=== PATIENT | female | born 1995 | race Caucasian/White ===

== ENCOUNTER 2020-10-16 22:44 | Emergency (ER) | payer OTHER, SELFPAY ==
--- NOTE | ~2020-10-16 | US_ITS ---
EXAMINATION: US OB <= 14 weeks fetus DATE: 10/17/2020 03:29 INDICATION: First trimester vaginal bleeding. TECHNIQUE: Real-time transabdominal pelvic ultrasound was performed. COMPARISON: None. FINDINGS: The uterus measures 14.1 x 7.1 x 6.2 cm. There is an intrauterine gestational sac. A yolk sac is iden tified. The crown rump length measures 1.8 cm, which correlates with an estimated gestational age of 8 weeks and 2 day(s) (+/-) 5 day(s). heart motion is identified measuring 161 beats per minute (bpm) by M-mode Doppler. There is a small subchorionic hematoma measuring 1.6 x 0.8 x 0.6 cm. The right ovary measures 3.4 x 2.0 x 2.1 cm. The left ovary measures 4.7 x 2.9 x 2.8 cm. There is a c orpus luteum cyst in left ovary measuring 2.8 cm. There is no free fluid in the pelvis. IMPRESSION: 1. Single living intrauterine gestation with estimated date of delivery 05/27/2021. 2. Small subchorionic hematoma. Reviewed, dictated and finalized at location [facility]. IMPRESSION: 1. Single living intrauterine gestation with estimated date of delivery 022. 2. Small subchorionic hematoma.
[2020-10-16 22:53] VITALS: BP 131/71; PULSE 83; RESP 20; TEMP 36.8; O2SAT 97
--- NOTE | 2020-10-16 23:12 | ED.FEMALEGU ---
HPI - Female Genitourinary General Chief complaint: Urogenital-Female Stated complaint: vag bleed Time Seen by Provider: 10/16/20 22:54 Source: patient and RN notes reviewed Mode of arrival: ambulatory Limitations: no limitations History of Present Illness HPI Narrative: This is a 25 yo female approximately 8 weeks GA who presents for evaluation of vaginal bleeding. She noticed pink discharge early today. Approximately 1 hours ago, she states her discharge turned to brownish-red. She reports mild cramping that has now resolved. She denies dizziness or lightheadedness. She reports she had an ultrasound 3 weeks ago that showed an IUP. Her OBGYN is located at [facility] in [place]. Related Data Home Medications Medication Instructions Recorded Confirmed etonogestrel [Nexplanon] 1 implant SUBDERMAL ONCE 05/05/19 05/05/19 Allergies Allergy/AdvReac Type Severity Reaction Status Date / Time Penicillins Allergy Unknown Hives Verified 05/05/19 12:51 Review of Systems Review of Systems: All systems reviewed & are unremarkable except as noted in HPI and below [facility] Past Medical History Medical History (Updated 10/17/20 @ 04:51 by Soumya Olson MD) Asthma Surgical History Surgical History (Updated 10/16/20 @ 23:15 by Soumya Olson MD) No pertinent past surgical history Social History Social History (Updated 10/16/20 @ 23:15 by Soumya Olson MD) Smoking status: Never smoker Gender identity (if verbalized by the patient): Female Exam Const: General: no acute distress and alert Orientation/consciousness: patient oriented x3 Eyes: EOM: EOMs intact bilaterally Resp: Effort & Inspection: normal respiratory effort and no retractions Auscultation: clear to auscultation bilaterally Cardio: Rate: regular rate Rhythm: regular rhythm Heart sounds: no murmurs GI: GI Palp: Yes Soft to palpation, No Tenderness to palpation present (GI) and No Guarding due to palpation present (GI) Auscultation: normal bowel sounds : Speculum Exam - Cervix: Cervical os closed Other: no bleeding Neuro: General: patient oriented x3, moves all extremities and CN's II-XI intact bilaterally Psych: Mental Status: mental status grossly normal Affect: normal affect Course Reevaluation(s) Reevaluation #1: Patient was given rhogam for her RH negative. I Discussed US with patient and she will follow up with her OBGYN Date: 10/17/20 Time: 04:47 Vital Signs Vital signs: Vital Signs Temperature 98.3 F 10/16/20 22:53 Pulse Rate 83 10/16/20 22:53 Respiratory Rate 20 10/16/20 22:53 Blood Pressure 131/71 10/16/20 22:53 Pulse Oximetry 97 10/16/20 22:53 Temperature 97.8 F 10/17/20 03:00 Pulse Rate 75 10/17/20 04:51 Respiratory Rate 18 10/17/20 04:51 Blood Pressure 140/66 10/17/20 04:51 Pulse Oximetry 100 10/17/20 04:51 MDM - Female Genitourinary Lab Data Attestation: I reviewed the patient's lab results. Result diagrams: 10/16/20 23:37 Labs: Lab Results 10/16/20 10/16/20 10/16/20 Range/Units 23:37 23:37 23:41 WBC 6.1 (4.5-10.0) K/mm3 RBC 4.56 (4.2-5.4) M/mm3 Hgb 10.6 L (12.0-15.0) g/dL Hct 34.3 L (37.0-47.0) % MCV 75.2 L (80-100) fl MCH 23.2 L (26-34) pg MCHC 30.9 L (32-36) g/dl RDW 17.9 H (11.5-14.5) % Plt Count 280 (150-375) k/mm3 MPV 10.0 (7.4-10.4) fl Immature Gran % (Auto) 0.2 (0-0.5) % Neut % (Auto) 64.6 (45.5-73.1) % Lymph % (Auto) 25.1 (18.3-44.2) % Duchesne % (Auto) 8.8 H (2.6-8.5) % Eos % (Auto) 1.0 (0-4.4) % Baso % (Auto) 0.3 (0.2-1.2) % Lymph # (Auto) 1.54 (0.9-3.2) K/mm3 Duchesne # (Auto) 0.5 (0.1-0.6) K/mm3 Eos # (Auto) 0.1 (0-0.3) K/mm3 Baso # (Auto) 0.0 (0.0-0.1) K/mm3 Abs Immat Gran (auto) 0.01 (0.00-0.031) K/mm3 Absolute Neuts (auto) 4.0 (1.3-6.7) K/mm3 Absolute Nucleated RBC 0.0 (0.0-0.012) K/mm3 Nuc
[2020-10-16 23:21] VITALS: BP 112/63; PULSE 78
[2020-10-16 23:22] VITALS: BP 116/75; PULSE 82
[2020-10-16 23:24] VITALS: BP 122/83; PULSE 82
[2020-10-16 23:47] LABS: Basophils Percent Auto 0.3 % (0.2-1.2); Eosinophils Absolute Auto 0.1 K/mm3 (0-0.3); Hematocrit 34.3 % (37.0-47.0); Hemoglobin 10.6 g/dL (12.0-15.0); Immature Granulocyte Absolute 0.01 K/mm3 (0.00-0.031); Immature Granulocyte Percent A 0.2 % (0-0.5); Lymphocytes Absolute Auto 1.54 K/mm3 (0.9-3.2); Lymphocytes Percent Auto 25.1 % (18.3-44.2); Mean Corpuscular HGB Conc 30.9 g/dl (32-36); Mean Corpuscular Hemoglobin 23.2 pg (26-34); Mean Corpuscular Volume 75.2 fl (80-100); Monocytes Absolute Auto 0.5 K/mm3 (0.1-0.6); Monocytes Percent Auto 8.8 % (2.6-8.5); Neutrophils Percent Auto 64.6 % (45.5-73.1); Platelet Count Result 280 k/mm3 (150-375); Red Blood Count 4.56 M/mm3 (4.2-5.4); Red Cell Distribution Width 17.9 % (11.5-14.5); White Blood Count 6.1 K/mm3 (4.5-10.0)
[2020-10-17 02:08] VITALS: BP 120/65; PULSE 64; RESP 18; O2SAT 97
[2020-10-17 03:00] VITALS: BP 117/71; PULSE 72; RESP 18; TEMP 36.6; O2SAT 98
[2020-10-17 04:51] VITALS: BP 140/66; PULSE 75; RESP 18; O2SAT 100
== END 2020-10-17 05:02 | disposition home or self-care (01) ==
PROVIDERS: Emergency Provider General Practice
DX: O20.0 Threatened abortion (principal); Z3A.08 8 weeks gestation of pregnancy
CPT/HCPCS: 36415; 76801; 84702; 85025; 85461; 90384; 96372; 99284; J2790

== ENCOUNTER 2021-11-24 10:43 | Emergency (ER) | payer OTHER, SELFPAY ==
[2021-11-24 11:09] VITALS: BP 111/73; PULSE 93; RESP 16; TEMP 36.3; O2SAT 100
--- NOTE | 2021-11-24 11:20 | ED.SKABFB ---
HPI - Skin/Abscess/Foreign Bdy General Chief complaint: Skin/Abscess/Foreign Body Stated complaint: cyst Time Seen by Provider: 11/24/21 11:20 Source: patient and RN notes reviewed Mode of arrival: ambulatory Limitations: no limitations History of Present Illness HPI narrative: 26-year-old female presents to the [facility] with red, inflamed area to the right inner upper thigh. Patient states its been there for approximately 3 days. Patient states he thinks it started as a pimple or ingrown hair. Denies fevers. Has full range of motion of the hips and knees. Onset (ago): day(s) (3) Related Data Allergies Allergy/AdvReac Type Severity Reaction Status Date / Time Penicillins Allergy Unknown Hives Verified 11/24/21 11:08 Review of Systems Review of Systems: All systems reviewed & are unremarkable except as noted in HPI and below Constitutional: Constitutional: Reports no additional constitutional complaints, Denies chills and Denies fever(s) Eyes: Eyes: Reports no additional eye complaints ENT: Reports system reviewed and no additional complaints, except as documented Cardiovascular: Cardiovascular: Reports no additional cardiovascular complaints Respiratory: Respiratory: Reports no additional respiratory complaints Gastrointestinal: Gastrointestinal: Reports no additional gastrointestinal complaints Musculoskeletal: Musculoskeletal: Reports no additional musculoskeletal complaints Integumentary/Breasts: Skin/Breast: Reports as per HPI and Reports erythema (Right inside thigh) Neurologic: Reports system reviewed and no additional complaints, except as documented Psychiatric: Psychiatric: Reports no additional psychiatric complaints Allergic/Immunologic: Allergic/Immunologic: Reports no additional allergic/immunologic complaints PMFSH Past Medical History Medical History Asthma Surgical History Surgical History No pertinent past surgical history Social History Social History Smoking status: Never smoker Gender identity (if verbalized by the patient): Female Comments At the time of my signature, I reviewed and agree with the nursing past medical, surgical, social, and family history. There is no relevant family history pertinent to the patient complaint. Exam Const: General: healthy appearing, no acute distress and alert Nutritional Appearance: well nourished and obese Orientation/consciousness: patient oriented x3 Limitations: no limitations HENMT: Head: normal to inspection Ears: external ears normal Eyes: General: appearance normal, both eyes and all related structures Pupils: Equal, round and reactive pupils present Neck: Neck: normal visual inspection, no lymphadenopathy and no meningeal signs Chest: Chest palpation & inspection: normal inspection of the chest Resp: Effort & Inspection: normal respiratory effort and no use of accessory muscles Auscultation: clear to auscultation bilaterally, no crackles, no rales, no rhonchi and no wheezes Cardio: Rate: regular rate Rhythm: regular rhythm Back/Spine/Pelvis: Cervical Spine: normal cervical lordosis Thoracic/Lumbar Spine: thoracic and lumbar spine normal to inspection Skin: General skin exam: normal color Rashes: no rashes Wounds: no wounds Full body images: 1. 17 x 10 cm cellulitic changes. Fluctuant area approximately 4 x 5 cm. Area raised, hot to touch. No streaking noted. Neuro: General: patient oriented x3, moves all extremities, no meningeal signs and no focal motor deficits Cranial nerves: Yes Equal, round and reactive pupils present Speech: normal speech Gait exam (Neuro): Normal gait present Extrem: General: normal to inspection, full ROM and capillary refill normal Psych: Appearance: grossly normal and well kempt Mental Status: mental status grossly
== END 2021-11-24 12:40 | disposition home or self-care (01) ==
PROVIDERS: Emergency Provider Nurse Practitioner
DX: L02.415 Cutaneous abscess of right lower limb (principal); J45.909 Unspecified asthma, uncomplicated
CPT/HCPCS: 10060; 87070; 87075; 87147; 87181; 87186; 87205; 99213; G0463

== ENCOUNTER 2024-06-09 15:32 | Emergency (ER) | payer OTHER, SELFPAY ==
[2024-06-09 15:46] VITALS: BP 133/82; PULSE 89; RESP 16; TEMP 37; O2SAT 99
--- NOTE | 2024-06-09 16:26 | ED_ITS ---
HPI - Nausea/Vomiting/Diarrhea General Chief complaint: Abdominal Pain Stated complaint: abdominal pain Time Seen by Provider: 06/09/24 15:36 Source: patient Mode of arrival: ambulatory Limitations: no limitations History of Present Illness HPI Narrative: Patient is a 28-year-old female presents with abdominal cramping, nausea and diarrhea that started this morning around 9:00 a.m.. Patient states they had [place] food last night. Denies any known exposures or sick kids at home. Denies any fever, chills, congestion, sore throat, cough. Has not taken anything for symptoms. Related Data Home Medications ?Medication ?Instructions ?Recorded ?Confirmed ?Last Taken ?Type norgestimate 0.25 mg-ethinyl 1 tablet PO DAILY 06/09/24 06/09/24 Unknown History estradiol 35 mcg tablet (Estarylla) Allergies Allergy/AdvReac Type Severity Reaction Status Date / Time Penicillins Allergy Unknown Hives Verified 06/09/24 16:32 Review of Systems Review of Systems: All systems reviewed & are unremarkable except as noted in HPI and below Constitutional: Constitutional: Denies body ache(s), Denies chills, Denies fatigue, Denies fever(s), Denies headache(s), Denies malaise and Denies weakness Eyes: Eyes: Denies blurry vision, Denies irritation and Denies loss of vision ENT: Denies otalgia, Denies headache(s), Denies nasal discharge, Denies sinus pain and Denies sore throat Cardiovascular: Cardiovascular: Denies chest pain, Denies irregular heart rhythm and Denies dyspnea Respiratory: Respiratory: Denies dyspnea Gastrointestinal: Gastrointestinal: Reports abdominal pain, Denies melena, Denies hematochezia, Reports diarrhea, Reports nausea and Denies vomiting Musculoskeletal: Musculoskeletal: Denies back pain, Denies myalgias and Denies arthralgias Integumentary/Breasts: Skin/Breast: Denies pruritus and Denies rash Neurologic: Denies headache(s), Denies loss of vision and Denies weakness Psychiatric: Psychiatric: Reports no additional psychiatric complaints Endocrine: Endocrine: Denies fatigue PMFSH Past Medical History Medical History Asthma Surgical History Surgical History No pertinent past surgical history Social History Social History Smoking status: Never smoker Gender identity (if verbalized by the patient): Female Comments At time of signature, agree with nursing past medical, surgical, social and family history. There is no relevant family history pertinent to the presenting complaint. Exam Const: General: cooperative, healthy appearing, comfortable, no acute distress and well nourished Nutritional Appearance: well nourished Orientation/consciousness: patient oriented x3 Limitations: no limitations HENMT: Head: normal to inspection, normocephalic and atraumatic Ears: hearing grossly normal bilaterally and external ears normal Face/Nose/Sinus: Normal external nose present, normal facial exam and face symmetric Face and sinus: normal facial exam and face symmetric Mouth: Yes lip normal Eyes: General: appearance normal, both eyes and all related structures Alignment and Position: alignment normal and position normal Periorbital: periorbital findings normal Eyelids: eyelids normal Pupils: Equal, round and reactive pupils present EOM: EOMs intact bilaterally Neck: Neck: normal visual inspection, full ROM and supple Chest: Chest palpation & inspection: normal inspection of the chest Resp: Effort & Inspection: normal respiratory effort and able to speak in complete sentences Auscultation: clear to auscultation bilaterally Cardio: Rate: regular rate Rhythm: regular rhythm Heart sounds: S1 normal heart sound present and S2 normal heart sound present GI: Inspection: normal to inspection GI Palp: Yes abdominal tenderness (Left upper quadrant), Yes Soft to palpation and No Guarding due to palpation present (GI) Auscultation: normal bowel sounds Rectal Exam: deferred Skin: General skin exam: normal color and no rashes or lesions noted Neuro: General: patient oriented x3 and moves all extremities Cranial nerves: Yes Equal, round and reactive pupils present Speech: normal speech Gait exam (Neuro): Normal gait present Extrem: General: normal to inspection, full ROM and no edema Psych: Appearance: grossly normal and well kempt Mental Status: mental status grossly normal Speech and movement: Normal speech and movement present Affect: normal affect Attitude: cooperative Thought process: Normal thought process present Course Course Emergency Course: Patient is aware of diagnosis, understands and agrees to treatment plan. Anticipatory guidance given. Patient agrees to follow-up as directed and is aware of reasons to seek care at the emergency department. Portions of this record may have been created with voice recognition software Level of Care: Express Care Visit Vital Signs Vital signs: Vital Signs Temperature 37.0 C 06/09/24 15:46 Pulse Rate 89 06/09/24 15:46 Respiratory Rate 16 06/09/24 15:46 Blood Pressure 133/82 06/09/24 15:46 Pulse Oximetry 99 06/09/24 15:46 Temperature 37.0 C 06/09/24 15:46 Pulse Rate 89 06/09/24 15:46 Respiratory Rate 16 06/09/24 15:46 Blood Pressure 133/82 06/09/24 15:46 Pulse Oximetry 99 06/09/24 15:46 Reviewed MDM - Nausea/Vomiting/Diarrhea MDM Narrative Medical decision making narrative: Pt well hydrated appearing, in no respiratory distress, hemodynamically stable. Recommend supportive care. The patient is stable at time of discharge the clinical impression was discussed and the patient was given the opportunity to ask questions, which were addressed as completely as possible given the information available at present. Anticipatory guidance and return to care precautions were discussed and the importance of primary care follow-up was stressed and encouraged. The patient voiced understanding of the plan, indications to return, and the need for follow-up. Exam findings show no acute concerns or changes Patient is appropriate for outpatient treatment and follow-up. Differential Diagnosis Differential diagnosis: Likely traveler's diarrhea, food poisoning, gastroenteritis and clostridium difficile infection Medical Records Attestation: I reviewed the patient's medical records. Lab Data Labs: Lab Results 06/09/24 Range/Units 16:44 POC Influenza A Ag Negative (Negative) POC Influenza B Ag Negative (Negative) POC SARS CoV-2 Ag Negative (Negative) Discharge Plan Discharge Clinical Impression: Gastroenteritis Patient Disposition: Home, Self-Care Condition: Stable Instructions: Gastroenteritis (ED) Additional Instructions: Fever negative for COVID and flu Take Bentyl as prescribed. Use Zofran as needed for nausea. If diarrhea persists more than 3 days you may start [id number] Imodium. Stay hydrated. Take small sips of fluid containing electrolytes frequently(Body Dittmer, Gatorade, Powerade, liquid IV). Eat small meals that her very bland including bananas, applesauce, rice, toast, boiled or grilled chicken, soup. Do not eat anything fried, spicy or overly acidic. You should go to the hospital if you experience return of persistent nausea and vomiting that does not resolve and does not allow you to tolerate any food or fluids, persistent fevers for greater than 2-3 more days, increasing abdominal pain that persists despite medications, persistent diarrhea, dizziness, syncope (fainting), or for any other concerns. Patient Language: [place] Prescriptions: New dicyclomine 20 mg tablet 20 mg PO QID 7 Days Qty: 28 0RF ondansetron 4 mg tablet,disintegrating 4 mg PO Q6-8H PRN (Reason: nausea and vomiting) Qty: 7 0RF No Action norgestimate-ethinyl estradiol [Estarylla] 0.25-35 mg-mcg tablet 1 tablet PO DAILY Follow-up/Referrals: PHYSICIAN NOT ON STAFF,NONSTAFF [Primary Care Provider] - Ilya Collier MD [Physician] - 3 Days (Establish care) Stand Alone Forms: Work/School Release IP Time of Disposition: 16:47
[2024-06-09 16:46] LABS: EDCOVIDSCREEN Negative (Negative); EDINFLUASCREEN Negative (Negative); EDINFLUBSCREEN Negative (Negative)
== END 2024-06-09 16:59 | disposition home or self-care (01) ==
PROVIDERS: Emergency Provider Nurse Practitioner Family
DX: K52.9 Noninfective gastroenteritis and colitis, unspecified (principal); J45.909 Unspecified asthma, uncomplicated; Z20.822 Contact with and (suspected) exposure to COVID-19
CPT/HCPCS: 87426; 87804; 99213; G0463

== ENCOUNTER 2024-06-10 01:56 | Emergency (ER) | payer OTHER, SELFPAY ==
--- OUTSIDE RECORDS SUMMARY | 2024-06-10 02:00 | XMS_ITS | Data Portability ---
Author Organization [facility] [employer], Main Office Address [address] [place] [address] Assessment No assessment recorded. Plan of Treatment Reminders Order Date Submit Date Provider Last Modified By Organization Details Last Modified Time Details Appointments None recorded. Lab lipid panel, serum [address] (Lab), [address] [place], [address], 3 12:39:10 CBC w/ auto diff [address] (Lab), [address] [place], [address], 3 12:39:11 TSH, serum or plasma [address] (Lab), [address] [place], [address], 3 12:39:11 T4, free, serum [address] (Lab), [address] [place], [address], 3 12:39:11 CK (creatine kinase), total, serum [address] (Lab), [address] [place], [address], 3 12:39:11 ferritin, serum or plasma [address] (Lab), [address] [place], [address], 3 12:39:11 iron + total iron-bindin g capacity (TIBC), serum [address] (Lab), [address] [place], [address], 3 12:39:11 vitamin B12 + folate, serum or blood [address] (Lab), [address] [place], [address], 3 12:39:11 vitamin D, 25-hydroxy, total, serum [address] (Lab), [address] [place], [address], 3 12:39:12 hemoglobin A1C, fingerstick 2022 023 [facility] [address], [place], [address], 11:01:26 Referral None recorded. Procedures None recorded. Surgeries None recorded. Imaging None recorded. Medication Orders albuterol sulfate HFA 90 mcg/actuati on aerosol inhaler 2022 023 patrice Schneider [facility] #[id number], [address], [place], [place], [id number], 3 12:36:02 ferrous sulfate 325 mg (65 mg iron) tablet 2022 023 [facility], [address] [place], [place], [id number], 3 10:16:05 omeprazole 20 mg capsule,del ayed release 2022 023 [facility] #[facility]91, [address] [place], [place], [id number], 3 12:03:01 hydroxyzine HCl 10 mg tablet 2022 023 [facility] [place] [facility] #13024, [address] [place], [place], [id number], 3 12:08:03 Patient TargetsNo targets recorded. Patient Instructions Encounter Date Encounter Id Patient Instructions Last Modified By Organization Details Last Modified Time 11/19/2022 [id number] she will get lab s done [email or web address] Not available 11/21/2022 10:08:24 Reason for Referral None Reported. Results Created Date Observation Date Name Description Value Unit Range Abnormal Flag Note LastModifiedBy Organization Detail LastModifiedTime 10/21/1910/20/2022 hemog lobin A1C, finge rstic k HgbA1C 5.4 Not Available [facility] [address], [place], [address], 10/20/2022 10:15:15 Result Notes None recorded. Problems Name Problem SNOMED Code Status Onset Date Resolution Date Notes Provider Name and Address Organization Details Recorded Time Iron deficiency anemia 44122957 Active 2022 MAIDA Leach [address], [place], [address], [employer] 3 10:13:51 Family history of diabetes mellitus 740478205 Active 2022 maternal MAIDA Leach [address], [place], [address], [employer] 3 10:14:57 At increased risk of nutritional deficit 798875339 Active 2022 MAIDA Leach [address], [place], [address], [employer] 3 10:17:36 Adult health examination Active 2022 MAIDA Leach [address], [place], [address], [employer] 3 10:17:59 Asthma 811699940 Active 2022 MAIDA Leach [address], [address], [place], [address], [employer] 3 10:19:31 Gastroesoph ageal reflux disease 849566513 Active 2022 MAIDA Leach [address], [address], [place], [address], [employer] 3 12:01:49 Anxiety 00887239 Active 2022 MAIDA Leach [address], [address], [place], [address], [employer] 3 12:05:38 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 Medical Equipment None Reported. Allergies Allergen ID Allergen Name Allergen Category Reaction Reaction Severity Criticality Documentation Date Start Date Code Code System Note Provider Name and Address Organization Details Recorded Time 44679 Product containin g penicilli n and antibioti c (product) medicatio n Not available Not available Not available 10/20/2022 [id number] SNPASHA Armendariz, [place] [employer] [facility] [employer] [facility] 3 09:43:18 Medications Name Sig Start Date Stop Date Status Note LastModified by Organization Details LastModified Time clindamycin HCl 300 mg capsule TAKE 1 CAPSULE BY MOUTH EVERY 8 HOURS FOR 10 DAYS 10/20 completed Not Available Not Available Not Available hydrocodone 5 mg-acetamin ophen 325 mg tablet TAKE 1 TABLET BY MOUTH EVERY 6 HOURS NEEDED FOR PAIN 10/20 completed Not Available Not Available Not Available omeprazole 20 mg capsule,del ayed release TAKE 1 CAPSULE BY MOUTH TWICE DAILY BEFORE MEALS FOR 30 DAYS. active Not Available Not Available No t Available cyanocobala min (vit B-12) 1,[address] 1 tablet twice a day by sublingua l route for 30 days. 2022 active Not Available Not Available Not Avai lable albuterol sulfate HFA 90 mcg/actuati on aerosol inhaler INHALE 2 PUFFS BY MOUTH THREE TIMES DAILY NEEDED active Not Available Not Available No t Available hydroxyzine HCl 10 mg tablet TAKE 1 TO 2 TABLETS BY MOUTH UP TO THREE TIMES DAILY NEEDED active Not Available Not Available No t Available cholecalcif nicolle (vitamin D3) 25 mcg (1,000 unit) capsule Take 1 capsule every day by oral route with meals for 30 days. 2022 active Not Available Not Available Not Avai lable FeroSul 325 mg (65 mg iron) tablet TAKE 1 TABLET BY MOUTH TWICE DAILY FOR 30 DAYS active Not Available Not Available No t Available [employer] 3 mg-14.2 mg (28) tablet active Not Available Not Available Not Available Vitals Date Recorded Body height Body mass index (BMI) Body weight Body temperature Heart rate Oxygen saturation Oxygen saturation in Arterial blood by Pulse oximetry Systolic blood pressure Diastolic blood pressure Provider Name and Address Organization Details Last Updated DateTime 3 165.1 cm 35.5 kg/m2 99306.5 7 g 98.2 [degF] 92 /min 97 % 97 % 110 mm[Hg] 82 mm[Hg] PASHA Christianson - [place] [employer] 3 09:42:50 Date Recorded Body height Body mass index (BMI) Body weight Body temperature Heart rate Oxygen saturation Oxygen saturation in Arterial blood by Pulse oximetry Systolic blood pressure Diastolic blood pressure Provider Name and Address Organization Details Last Updated DateTime 3 165.1 cm 35.1 kg/m2 83793.9 9 g 97.8 [degF] 90 /min 98 % 98 % 110 mm[Hg] 80 mm[Hg] Liz Rodrigues MA [email or web address] 11:57:02 Social History Question Answer Notes LastModified by Organizat ion Details LastModified Time Tobacco Smoking Status Never Smoker Liz Rodrigues MA null, [email or web address] 10/20/2022 09:47:06 What Is Your Level Of Alcohol Consumption? Occasional [email or web address] Information not available 10/20/2022 What Is Your Level Of Caffeine Consumption? Heavy [email or web address] Information not available 10/20/2022 Do You Use Your Seat Belt Or Car Seat Routinely? Yes [email or web address] Information not available 10/20/2022 Do You Participate In Social Media? Yes [email or web address] Information not available 10/20/2022 Do You Feel Stressed (tense, Restless, Nervous, Or Anxious, Or Unable To Sleep At Night)? [id number] [email or web address] Information not available 10/20/2022 Do You Use Any Illicit Or Recreational Drugs? No [email or web address] Information not available 10/20/2022 Sex: Unknown Functional Status None recorded. Mental Status None recorded. Family History Relationship Description Onset Age of this Age Resolved Age Notes LastModified by Organization Details LastModified Time Mother Asthma [email or web address] Not availabl e 10/20/2022 09:44:56 Mother Diabetes mellitus [email or web address] Not available 10/09 09:45:12 Sister Asthma [email or web address] Not availabl e 10/20/2022 09:44:57 Sister Diabetes mellitus [email or web address] Not available 10/09 09:45:17 Maternal Grandfather Asthma [email or web address] Not available 09:44:57 Maternal Grandfather Diabetes mellitus [email or web address] Not available 10/09 09:45:22 Maternal Aunt Diabetes mellitus [email or web address] Not available 10/09 09:45:29 Medical History No medical history recorded. Gynecological HistoryNo gynecological history recorded. Obstetrics History GPAL:G 0 P 0 0 0 0 Past Encounters Encounter ID Performer Location Encounter Start Date Encounter Closed Date Diagnosis/Indication Diagnosis SNOMED-CT Code Diagnosis ICD10 Code Diagnosis Note [id number] MAIDA Leach [facility] Juanis woodse [address] [facility] [address] [place] [address] 10/20/2022 09:24:35 10/20/2022 10:36:07 Iron deficiency anemia 18160672 D50.9 Family his tory of diabetes mellitus 318811012 Z83.3 Adult heal th examination 695200548 Z00.00 Asthma 732583726 J45.90 9 [id number] MAIDA Leach [facility] Jaylenmerced lle [address] [facility] [place] [address] 11/19/2022 11:49:03 11/19/2022 12:50:16 Gastroesophageal reflux disease 549606365 K21.9 Asthma 893411620 J45.90 9 Anxiety 90286132 F41.9 Health Concerns Section Related Observation LastModified by Organization Detai ls LastModified Time None Recorded Concern Status LastModified by Organization Details LastModified Time None Recorded Advance Directives Directive None Recorded Payers Encounter Date Sequence Insurance Name Policy Number Policy Coleman Covered Member ID Coleman Member ID Guarantor Name 10/20/2022 1 [facility] (MEDICARE REPLACEMENT/ ADVANTAGE - HMO) Nimo Silverman [id number] Nimo Silverman 11/19/2022 1 [facility] (MEDICARE REPLACEMENT/ ADVANTAGE - HMO) Nimo Silverman [id number] Nimo Silverman Notes Date Note Type Note Provider Name and Address Organization Details Recorded Time 10/20/2022 text/html 27 y/o with low iron , has had iron infusions (last one about a year ago) and blood transfusions (last one about 4 years ago ) . family history of diabetes , maternal side . not hungry all the time , not thirsty all the time , not urinating all the time . asthma , no attacks in the last 2 years. MAIDA Leach [address], [place], [address], [facility] [employer] 10/21/2022 12:37:18 11/19/2022 text/html needs refills on meds MAIDA Leach [address], [place], [address], [facility] 11/21/2022 10:08:43 OBGyn Episode No OBEpisode recorded.
--- OUTSIDE RECORDS SUMMARY | 2024-06-10 02:01 | XMS_ITS | Data Portability ---
Author Organization [facility] [employer] , [facility] Address [address] [place] [address] Care Team Providers Care Animal Control Supervisor Name Role Phone [facility] Transverse Abdominal Muscle Nurse Assessment No assessment recorded. Plan of Treatment Reminders Order Date Submit Date Provider Last Modified By Organization Details Last Modified Time Details Appointments None recorded. Lab test, urine 2023 025 [email or web address] [facility], [address] [place], [address], 5 11:23:54 Referral None recorded. Procedures None recorded. Surgeries None recorded. Imaging US, transvagina l 2023 025 GAVINO Not available 5 01:41:05 Medication Orders [employer] 3 mg-14.2 mg (28) tablet 2023 025 [facility] #[id number], [address], [place], [id number], 5 11:01:31 28 mg iron-800 mcg tablet 2024 025 [employer] #[id number], [address], [place], [id number], 5 11:23:57 Patient TargetsNo targets recorded. Patient Instructions Encounter Date Encounter Id Patient Instructions Last Modified By Organization Details Last Modified Time 07/17/2021 [id number] Will proceed wit h laparoscopic bilateral salpingectomy, risks of surgery are infection, bleeding, scarring, injury to bowel, bladder, uterus [id number] Not available 07/17/2021 22:36:46 Reason for Referral None Reported. Results Created Date Observation Date Name Description Value Unit Range Abnormal Flag Note LastModifiedBy Organization Detail LastModifiedTime 04/26/20 21 05/01/2021 CULTU RE, GROUP B STREP WITH SUSCE PTIBI LITY culture, group B strep with susceptibili ty SEE NOTE abnormal CULTU RE, GROUP B STREP WITH SUSCE PTIBI LITY Micro Numbe r: [id number] Test Statu s: Final Speci men Sourc e: Vagin al/an orect al Speci men Quali ty: Adequ ate Resul t: Group B Strep tococ cus isola yamileth Note per CDC guide lines optim al recov willem is achie mp by swabb ing both the lower vagin a and rectu m (thro ugh the anal sphin cter) . Group B Strep ----- ----- ----- - INT MERA AMPIC ILLIN S <=0.2 5 CLIND AMYCI N S <=0.2 5 PENIC ILLIN S <=0.0 6 VANCO MYCIN S 0.5 S=Sun cepti ble I=Int ermed iate R=Res istan t * = Not Teste d NR = Not Repor yamileth NN = See Thera py Comme nts Not Available [place] [address] [place], [address], 05/01/2021 08:47:57 05/17/19 22 05/17/2021 UA REFLE X TO MICRO specimen type URINE CLEAN CATCH Not Available [facility] [address] [place], [address], 05/17/2021 02:41:01 05/17/19 22 05/17/2021 UA REFLE X TO MICRO color COLORL ESS Not Available [facility] [place], [address], 05/17/2021 02:41:01 05/17/19 22 05/17/2021 UA REFLE X TO MICRO clarity CLEAR Not Available [facility] (Lab) [address] [place]? [address] [facility], [place], [address], 05/17/2021 02:41:01 05/17/19 22 05/17/2021 UA REFLE X TO MICRO specific gravity 1.004 1.001- 1.030 Not Available [facility] (Lab) [address], [place], [address], 05/17/2021 02:41:01 05/17/19 22 05/17/2021 UA REFLE X TO MICRO pH, urine 6.0 5.0-9. 0 Not Available [facility] (Lab) [address] [place], [place], [address], 05/17/2021 02:41:01 05/17/19 22 05/17/2021 UA REFLE X TO MICRO leukocytes NEGATI VE neg Not Available [facility] (Lab) [place], [address], 05/17/2021 02:41:01 05/17/19 22 05/17/2021 UA REFLE X TO MICRO nitrite NEGATI VE neg Not Available [facility] (Lab) [place], [address], 05/17/2021 02:41:01 05/17/19 22 05/17/2021 UA REFLE X TO MICRO protein NEGATI VE mg/dL <30 Not Available [facility] (Lab) [address] [place], [place], [address], 05/17/2021 02:41:01 05/17/19 22 05/17/2021 UA REFLE X TO MICRO glucose NORMAL mg/dL norm Not Available [facility] (Lab) [address], [address], 05/17/2021 02:41:01 05/17/19 22 05/17/2021 UA REFLE X TO MICRO ketone NEGATI VE mg/dL neg Not Available [facility] (Lab) [address] [place]? [address] [facility], [place], [address], 05/17/2021 02:41:01 05/17/19 22 05/17/2021 UA REFLE X TO MICRO urobilinogen NORMAL mg/dL norm Not Available [facility] (Lab) [address] [place], [address], 05/17/2021 02:41:01 05/17/19 22 05/17/2021 UA REFLE X TO MICRO bilirubin NEGATI VE mg/dL neg Not Available [facility] (Lab) [address] [place], [address], 05/17/2021 02:41:01 05/17/19 22 05/17/2021 UA REFLE X TO MICRO blood NEGATI VE neg Not Available [facility] (Lab) [place], [address], 05/17/2021 02:41:01 05/17/19 22 05/17/2021 DRUGS OF ABUSE PANEL , URINE amphetamines , urine NEGATI VE neg Not Available [facility] (Lab) [address] [place], [address], 05/17/2021 02:48:11 05/17/19 22 05/17/2021 DRUGS OF ABUSE PANEL , URINE barbituates, urine NEGATI VE neg Not Available [facility] (Lab) [address] [place]? [facility], [place], [address], 05/17/2021 02:48:11 05/17/19 22 05/17/2021 DRUGS OF ABUSE PANEL , URINE benzodiazapi arabella, urine NEGATI VE neg Not Available [facility] (Lab) [address] [place]? [facility], [place], [address], 05/17/2021 02:48:11 05/17/19 22 05/17/2021 DRUGS OF ABUSE PANEL , URINE cannabinoids /THC, urine NEGATI VE neg Not Available [facility] (Lab) [address] [place]? [facility], [place], [address], 05/17/2021 02:48:11 05/17/19 22 05/17/2021 DRUGS OF ABUSE PANEL , URINE cocaine, urine NEGATI VE neg Not Available [facility] (Lab) [address] [place]? [facility], [place], [address], 05/17/2021 02:48:11 05/17/19 22 05/17/2021 DRUGS OF ABUSE PANEL , URINE methadone, urine NEGATI VE neg Not Available [facility] (Lab) [address] [place]? [facility], [place], [address], 05/17/2021 02:48:11 05/17/19 22 05/17/2021 DRUGS OF ABUSE PANEL , URINE opiates, urine NEGATI VE neg Not Available [facility] (Lab) [address] [place]? [facility], [place], [address], 05/17/2021 02:48:11 05/17/19 22 05/17/2021 DRUGS OF ABUSE PANEL , URINE phencyclidin es, urine NEGATI VE neg NOTE: RESUL TS OF THIS DRUG SCREE N SHOUL D BE USED FOR MEDIC AL PURPO SES ONLY AND NOT FOR LEGAL OR EMPLO YMENT PURPO SES. POSIT SHELDON RESUL TS ARE NOT CONFI RMED. MEDIC ATION S CONTA INING EPHED RINE MAY CAUSE FALSE POSIT SHELDON AMPHE TAMIN E CALL [phone], LAB, TO REQUE ST CONFI RMATI ON TESTI NG. IF CREAT ININE IS <40 mg/dL . RECOL LECTI ON IS SUGGE STED. AMPHE TAMIN E- 500 NG/ML LUCI TURAT E- 200 NG/ML BENZO DIAZE PINES - 200 NG/ML THC- 50 NG/ML COCAI NE- 150 NG/ML METHA DONE- 300 NG/ML OPIAT E- 300 MG/ML PCP- 25 NG/ML Not Available [facility] (Lab) One [facility], [place], [address], 05/17/2021 02:48:11 05/17/19 22 05/17/2021 DRUGS OF ABUSE PANEL , URINE creatinine, urine 16.8 mg/dL 28-217 low Not Available [facility] (Lab) [place], [address], 05/17/2021 02:48:11 05/17/19 22 05/17/2021 TYPE AND SCREE N ABO/Rh(D) O NEGATI VE Not Available [facility] (Lab) [place], [address], 05/20/2021 07:19:01 05/17/19 22 05/17/2021 TYPE AND SCREE N antibody screen NEGATI VE Not Available [facility] (Lab) [place], [address], 05/20/2021 07:19:01 05/17/19 22 05/17/2021 TYPE AND SCREE N xm expiration 2021,2 359 Not Available [facility] (Lab) [address] [place], [address], 05/20/2021 07:19:01 05/17/19 22 05/17/2021 TYPE AND SCREE N allocated unit Not Available [facility] (Lab) [address], [place], [address], 05/20/2021 07:19:01 05/17/19 22 05/17/2021 TYPE AND SCREE N unit number [id number] 1 Not Available [facility] (Lab) [address], [place], [address], 05/20/2021 07:19:01 05/17/19 22 05/17/2021 TYPE AND SCREE N blood component type PC LEUKOP OOR Not Available [facility] (Lab) [address], [place], [address], 05/20/2021 07:19:01 05/17/19 22 05/17/2021 TYPE AND SCREE N unit division 00 Not Available [facility] (Lab) [address], [place], [address], 05/20/2021 07:19:01 05/17/19 22 05/17/2021 TYPE AND SCREE N transfusion status OK TO TRANSF USE Not Available [facility] (Lab) [address] [place], [place], [address], 05/20/2021 07:19:01 05/17/19 22 05/17/2021 TYPE AND SCREE N crossmatch result COMPAT IBLE-E XM Not Available [facility] (Lab) [address] [place], [place], [address], 05/20/2021 07:19:01 01/07/20 22 05/18/2021 TYPE AND SCREE N units ordered 3 Not Available [facility] (Lab) [address] [place]? [address], [place], [address], 05/20/2021 07:19:01 05/17/19 22 05/18/2021 TYPE AND SCREE N status of unit TRANSF USED,F INAL [id number] 22 0738 Not Available [facility] (Lab) [address] [place]? [address], [place], [address], 05/20/2021 07:19:01 05/17/19 22 05/18/2021 TYPE AND SCREE N allocated unit Not Available [facility] (Lab) [address] [place], [place], [address], 05/20/2021 07:19:01 05/17/19 22 05/18/2021 TYPE AND SCREE N unit number [id number] 2 Not Available [facility] (Lab) [address] [place]? [address], [place], [address], 05/20/2021 07:19:01 05/17/19 22 05/18/2021 TYPE AND SCREE N blood component type PC LEUKO PHERE BAG2 Not Available [facility] (Lab) [address] [place]? [address], [place], [address], 05/20/2021 07:19:01 05/17/19 22 05/18/2021 TYPE AND SCREE N unit division 00 Not Available [facility] (Lab) [address] [place], [place], [address], 05/20/2021 07:19:01 05/17/19 22 05/18/2021 TYPE AND SCREE N transfusion status OK TO TRANSF USE Not Available [facility] (Lab) [address], [place], [address], 05/20/2021 07:19:01 05/17/19 22 05/18/2021 TYPE AND SCREE N crossmatch result COMPAT IBLE-E XM Not Available [facility] (Lab) [address], [place], [address], 05/20/2021 07:19:01 05/17/19 22 05/18/2021 TYPE AND SCREE N allocated unit Not Available [facility] (Lab) [address], [place], [address], 05/20/2021 07:19:01 05/17/19 22 05/18/2021 TYPE AND SCREE N unit number [id number] 4 Not Available [facility] (Lab) [address], [place], [address], 05/20/2021 07:19:01 05/17/19 22 05/18/2021 TYPE AND SCREE N blood component type PC LEUKO PHERE BAG2 Not Available [facility] (Lab) [place], [address], 05/20/2021 07:19:01 05/17/19 22 05/18/2021 TYPE AND SCREE N unit division 00 Not Available [facility] (Lab) [address] [place], [address], 05/20/2021 07:19:01 05/17/19 22 05/18/2021 TYPE AND SCREE N transfusion status OK TO TRANSF USE Not Available [facility] (Lab) [address] [place], [address], 05/20/2021 07:19:01 05/17/19 22 05/18/2021 TYPE AND SCREE N crossmatch result COMPAT IBLE-E XM Not Available [facility] (Lab) [address] [place], [place], [address], 05/20/2021 07:19:01 05/17/19 22 05/19/2021 TYPE AND SCREE N status of unit TRANSF USED,F INAL [id number] 22 1213 Not Available [facility] (Lab) [address] [place], [place], [address], 05/20/2021 07:19:01 05/17/19 22 05/20/2021 TYPE AND SCREE N status of unit TRANSF USED,F INAL [id number] 22 0618 Not Available [facility] (Lab) [address] [place] [place], [address], 05/20/2021 07:19:01 05/17/19 22 05/17/2021 CBC WITH DIFF WBC 5.8 x10'3 /uL 4.5-11 .0 Not Available [facility] (Lab) [address] [place], [place], [address], 05/17/2021 03:29:46 05/17/19 22 05/17/2021 CBC WITH DIFF RBC 3.64 x10'6 /uL 4.20-5 .40 low Not Available [facility] (Lab) [address] [place], [address], 05/17/2021 03:29:46 05/17/19 22 05/17/2021 CBC WITH DIFF hemoglobin 7.5 g/dL 12.0-1 6.0 low Not Available [facility] (Lab) [address] [place], [place], [address], 05/17/2021 03:29:46 05/17/19 22 05/17/2021 CBC WITH DIFF hematocrit 26.3 % 38.0-4 8.0 low Not Available [facility] (Lab) [address] [place], [place], [address], 05/17/2021 03:29:46 05/17/19 22 05/17/2021 CBC WITH DIFF MCV 72.3 fL 81.0-9 9.0 low Not Available [facility] (Lab) [address] [place], [place], [address], 05/17/2021 03:29:46 05/17/19 22 05/17/2021 CBC WITH DIFF MCH 20.6 pg 27.0-3 1.0 low Not Available [facility] (Lab) [address] [place], [place], [address], 05/17/2021 03:29:46 05/17/19 22 05/17/2021 CBC WITH DIFF MCHC 28.5 g/dL 32.0-3 6.0 low Not Available [facility] (Lab) [address] [place], [place], [address], 05/17/2021 03:29:46 05/17/19 22 05/17/2021 CBC WITH DIFF RDW 19.6 % 11.5-1 4.5 high Not Available [facility] (Lab) [address] [place], [place], [address], 05/17/2021 03:29:46 05/17/19 22 05/17/2021 CBC WITH DIFF platelet count 233 x10'3 /uL 130-40 0 Not Available [facility] (Lab) [address] [place], [place], [address], 05/17/2021 03:29:46 05/17/19 22 05/17/2021 CBC WITH DIFF MPV 10.4 fL 9.3-12 .2 Not Available [facility] (Lab) [address] [place], [place], [address], 05/17/2021 03:29:46 05/17/19 22 05/17/2021 CBC WITH DIFF diff type AUTOMA YAMILETH DIFFER ENTIAL Not Available [facility] (Lab) [address] [place], [place], [address], 05/17/2021 03:29:46 05/17/19 22 05/17/2021 CBC WITH DIFF neutrophils 66.5 % Not Available [facility] (Lab) [address] [place], [place], [address], 05/17/2021 03:29:46 05/17/19 22 05/17/2021 CBC WITH DIFF lymphocytes 20.3 % Not Available [facility] (Lab) [address] [place], [place], [address], 05/17/2021 03:29:46 05/17/19 22 05/17/2021 CBC WITH DIFF monocytes 11.5 % Not Available [facility] (Lab) [address] [place], [place], [address], 05/17/2021 03:29:46 05/17/19 22 05/17/2021 CBC WITH DIFF eosinophils 1.2 % Not Available [facility] (Lab) [address] [place], [place], [address], 05/17/2021 03:29:46 05/17/19 22 05/17/2021 CBC WITH DIFF basophils 0.2 % Not Available [facility] (Lab) [address] [facility], [place], [address], 05/17/2021 03:29:46 05/17/19 22 05/17/2021 CBC WITH DIFF immature granulocytes 0.3 % Not Available [facility] (Lab) [address] [facility], [place], [address], 05/17/2021 03:29:46 05/17/19 22 05/17/2021 CBC WITH DIFF abs. neutrophils 3.87 x10'3 /uL 1.80-7 .70 Not Available [facility] (Lab) [address], [place], [address], 05/17/2021 03:29:46 05/17/19 22 05/17/2021 CBC WITH DIFF abs. lymphocytes 1.18 x10'3 /uL 1.00-4 .80 Not Available [facility] (Lab) [address] [facility], [place], [address], 05/17/2021 03:29:46 05/17/19 22 05/17/2021 CBC WITH DIFF abs. monocytes 0.67 x10'3 /uL 0.24-0 .86 Not Available [facility] (Lab) [address] [facility], [place], [address], 05/17/2021 03:29:46 05/17/19 22 05/17/2021 CBC WITH DIFF abs. eosinophils 0.07 x10'3 /uL 0.04-0 .36 Not Available [facility] (Lab) One [facility] [facility], [place], [address], 05/17/2021 03:29:46 05/17/19 22 05/17/2021 CBC WITH DIFF abs. basophils 0.01 x10'3 /uL 0.01-0 .08 Not Available [facility] (Lab) [address] [place] [place], [address], 05/17/2021 03:29:46 05/17/19 22 05/17/2021 CBC WITH DIFF abs. immature grans 0.02 x10'3 /uL 0.00-0 .49 Not Available [facility] (Lab) [address] [place] [place], [address], 05/17/2021 03:29:46 05/17/19 22 05/17/2021 CBC WITH DIFF RBC morphology SLIDE REVIEW ED Not Available [facility] (Lab) [address] [place] [place], [address], 05/17/2021 03:29:46 05/17/19 22 05/17/2021 CBC WITH DIFF anisocytosis 1+ Not Available [facility] (Lab) [address] [place] [place], [address], 05/17/2021 03:29:46 05/17/19 22 05/17/2021 CBC WITH DIFF microcytosis 1+ Not Available [facility] (Lab) [address] [place] [place], [address], 05/17/2021 03:29:46 05/17/19 22 05/17/2021 CBC WITH DIFF polychromasi a 1+ Not Available [facility] (Lab) [address] [place], [place], [address], 05/17/2021 03:29:46 05/17/19 22 05/17/2021 CBC WITH DIFF platelet estimate ADEQUA TE Not Available [facility] (Lab) [address] [place] [place], [address], 05/17/2021 03:29:46 05/17/19 22 05/17/2021 CBC WITH DIFF pathologist review PATHOL OGIST REVIEW TO FOLLOW . Not Available [facility] (Lab) [address] [place]? [address] [facility], [place], [address], 05/17/2021 03:29:46 05/17/19 22 05/17/2021 PATHO LOGIS T COMME NT pathologist comment PATHOL OGIST REVIEW ADDED TO REPORT [id number] 022 MARKE D MICRO CYTIC ANEMI A. POSSI BLE ETIOL OGIES INCLU DE THALA SSEMI A, IRON DEFIC IENCY , AND ANEMI A OF CHRON IC DISEA SE. IRON STUDI ES AND HEMOG LOBIN ELECT ROPHE RESIS MAY BE HELPF UL. POLYC HROMA DAYLIN OF RBC'S SUGGE ST RETIC ULOCY TOSIS , OFTEN ASSOC IATED WITH A RED CELL SURVI ÁNGEL DEFEC T, COMPE NSATE D OR UNCOM PENSA YAMILETH. ABNOR MAL LYMPH OID CELLS . GIANT PLATE LETS PRESE NT. REVIE WED BY MOIRA Santana M.D., PATHO LOGIS T Not Available [facility] (Lab) One [facility] [address] [facility], [place], [address], 05/17/2021 18:15:42 05/17/19 22 05/17/2021 CORON AVIRU S (COVI D 19) ANTIG EN coronavirus antigen ia POSITI VE neg abnormal THIS TEST HAS BEEN AUTHO RIZED BY THE FDA UNDER AN EMERG ENCY USE AUTHO RIZAT ION (EUA) FOR USE BY AUTHO RIZED LABOR ATORI ES. Succe ssful Call: [id number] G box d 05/17 06:22 PM to JAY GILBERT MD [phone]/B [place] [id number] 3. Read Back: Yes Not Available [facility] (Lab) [address] [place]? [address] [facility], [place], [address], 05/17/2021 19:22:54 05/17/19 22 05/17/2021 CORON AVIRU S (COVI D 19) ANTIG EN specimen type NASAL Not Available [facility] (Lab) [address] [place] [place], [address], 05/17/2021 19:22:54 05/17/19 22 05/17/2021 CORON AVIRU S (COVI D 19) ANTIG EN first test? NO Not Available [facility] (Lab) [address] [place] [place], [address], 05/17/2021 19:22:54 05/17/19 22 05/17/2021 CORON AVIRU S (COVI D 19) ANTIG EN employed in healthcare? NO Not Available [facility] (Lab) [address] [place] [place], [address], 05/17/2021 19:22:54 05/17/19 22 05/17/2021 CORON AVIRU S (COVI D 19) ANTIG EN symp defined by cdc? YES Not Available [facility] (Lab) [address] [place] [place], [address], 05/17/2021 19:22:54 05/17/19 22 05/17/2021 CORON AVIRU S (COVI D 19) ANTIG EN date of symptom onset Not Available [facility] (Lab) [address] [place] [place], [address], 05/17/2021 19:22:54 05/17/19 22 05/17/2021 CORON AVIRU S (COVI D 19) ANTIG EN hospitalized ? YES Not Available [facility] (Lab) [place], [address], 05/17/2021 19:22:54 05/17/19 22 05/17/2021 CORON AVIRU S (COVI D 19) ANTIG EN ICU? NO Not Available [facility] (Lab) [address] [place]? [address] [facility], [place], [address], 05/17/2021 19:22:54 05/17/19 22 05/17/2021 CORON AVIRU S (COVI D 19) ANTIG EN res congregate care? NO Not Available [facility] (Lab) [address] [place]? [address] [facility], [place], [address], 05/17/2021 19:22:54 05/17/19 22 05/17/2021 CORON AVIRU S (COVI D 19) ANTIG EN ? PREGNA NT Not Available [facility] (Lab) [address] [place], [place], [address], 05/17/2021 19:22:54 05/17/19 22 05/17/2021 DRUGS OF ABUSE PANEL , URINE amphetamines , urine NEGATI VE neg Not Available [facility] (Lab) [address] [place], [place], [address], 05/17/2021 20:35:59 05/17/19 22 05/17/2021 DRUGS OF ABUSE PANEL , URINE barbituates, urine NEGATI VE neg Not Available [facility] (Lab) [address] [place] [place], [address], 05/17/2021 20:35:59 05/17/19 22 05/17/2021 DRUGS OF ABUSE PANEL , URINE benzodiazapi arabella, urine NEGATI VE neg Not Available [facility] (Lab) [address] [place]? [address] [facility], [place], [address], 05/17/2021 20:35:59 05/17/19 22 05/17/2021 DRUGS OF ABUSE PANEL , URINE cannabinoids /THC, urine NEGATI VE neg Not Available [facility] (Lab) [place], [address], 05/17/2021 20:35:59 05/17/19 22 05/17/2021 DRUGS OF ABUSE PANEL , URINE cocaine, urine NEGATI VE neg Not Available [facility] (Lab) [place], [address], 05/17/2021 20:35:59 05/17/19 22 05/17/2021 DRUGS OF ABUSE PANEL , URINE methadone, urine NEGATI VE neg Not Available [facility] (Lab) [place], [address], 05/17/2021 20:35:59 05/17/19 22 05/17/2021 DRUGS OF ABUSE PANEL , URINE opiates, urine NEGATI VE neg Not Available [facility] (Lab) [place], [address], 05/17/2021 20:35:59 05/17/19 22 05/17/2021 DRUGS OF ABUSE PANEL , URINE phencyclidin es, urine NEGATI VE neg NOTE: RESUL TS OF THIS DRUG SCREE N EDWARD D BE USED FOR MEDIC AL PURPO SES ONLY AND NOT FOR LEGAL OR EMPLO YMENT PURPO SES. POSIT SHELDON RESUL TS ARE NOT CONFI RMED. MEDIC ATION S CONTA INING EPHED RINE MAY CAUSE FALSE POSIT SHELDON AMPHE TAMIN E CALL [phone], LAB, TO REQUE ST CONFI RMATI ON TESTI NG. IF CREAT ININE IS <40 mg/dL . RECOL LECTI ON IS SUGVICTOR HUGO STED. AMPHE TAMIN E- 500 NG/ML LUCI TURAT E- 200 NG/ML BENZO DIAZE PINES - 200 NG/ML THC- 50 NG/ML COCAI NE- 150 NG/ML METHA DONE- 300 NG/ML OPIAT E- 300 MG/ML PCP- 25 NG/ML Not Available [facility] (Lab) One [address] [place], [address], 05/17/2021 20:35:59 05/17/19 22 05/17/2021 DRUGS OF ABUSE PANEL , URINE creatinine, urine 32.7 mg/dL 28-217 Not Available [facility] (Lab) One [address] [place], [address], 05/17/2021 20:35:59 05/18/19 22 05/18/2021 CBC WITH DIFF WBC 4.1 x10'3 /uL 4.5-11 .0 low Not Available [facility] (Lab) One [facility] [place], [address], 05/18/2021 08:50:53 05/18/19 22 05/18/2021 CBC WITH DIFF RBC 3.62 x10'6 /uL 4.20-5 .40 low Not Available [facility] (Lab) [place], [address], 05/18/2021 08:50:53 05/18/19 22 05/18/2021 CBC WITH DIFF hemoglobin 7.7 g/dL 12.0-1 6.0 low Not Available [facility] (Lab) One [facility] [place], [address], 05/18/2021 08:50:53 05/18/19 22 05/18/2021 CBC WITH DIFF hematocrit 26.3 % 38.0-4 8.0 low Not Available [facility] (Lab) One [facility] [place], [address], 05/18/2021 08:50:53 05/18/19 22 05/18/2021 CBC WITH DIFF MCV 72.7 fL 81.0-9 9.0 low Not Available [facility] (Lab) [address], [place], [address], 05/18/2021 08:50:53 05/18/19 22 05/18/2021 CBC WITH DIFF MCH 21.3 pg 27.0-3 1.0 low Not Available [facility] (Lab) [address], [place], [address], 05/18/2021 08:50:53 05/18/19 22 05/18/2021 CBC WITH DIFF MCHC 29.3 g/dL 32.0-3 6.0 low Not Available [facility] (Lab) [address], [place], [address], 05/18/2021 08:50:53 05/18/19 22 05/18/2021 CBC WITH DIFF RDW 20.0 % 11.5-1 4.5 high Not Available [facility] (Lab) [address], [place], [address], 05/18/2021 08:50:53 05/18/19 22 05/18/2021 CBC WITH DIFF platelet count 178 x10'3 /uL 130-40 0 Not Available [facility] (Lab) [address], [place], [address], 05/18/2021 08:50:53 05/18/19 22 05/18/2021 CBC WITH DIFF MPV 10.3 fL 9.3-12 .2 Not Available [facility] (Lab) [address], [place], [address], 05/18/2021 08:50:53 05/18/19 22 05/18/2021 CBC WITH DIFF diff type AUTOMA YAMILETH DIFFER ENTIAL Not Available [facility] (Lab) [address] [place], [address], 05/18/2021 08:50:53 05/18/19 22 05/18/2021 CBC WITH DIFF neutrophils 61.9 % Not Available [facility] (Lab) [address], [place], [address], 05/18/2021 08:50:53 05/18/19 22 05/18/2021 CBC WITH DIFF lymphocytes 19.9 % Not Available [facility] (Lab) [address], [place], [address], 05/18/2021 08:50:53 05/18/19 22 05/18/2021 CBC WITH DIFF monocytes 15.5 % Not Available [facility] (Lab) [address], [place], [address], 05/18/2021 08:50:53 05/18/19 22 05/18/2021 CBC WITH DIFF eosinophils 2.0 % Not Available [facility] (Lab) [address], [place], [address], 05/18/2021 08:50:53 05/18/19 22 05/18/2021 CBC WITH DIFF basophils 0.2 % Not Available [facility] (Lab) [address], [place], [address], 05/18/2021 08:50:53 05/18/19 22 05/18/2021 CBC WITH DIFF immature granulocytes 0.5 % Not Available [facility] (Lab) [address], [place], [address], 05/18/2021 08:50:53 05/18/19 22 05/18/2021 CBC WITH DIFF abs. neutrophils 2.52 x10'3 /uL 1.80-7 .70 Not Available [facility] [place], [address], 05/18/2021 08:50:53 05/18/19 22 05/18/2021 CBC WITH DIFF abs. lymphocytes 0.81 x10'3 /uL 1.00-4 .80 low Not Available [facility] (Lab) [address], [place], [address], 05/18/2021 08:50:53 05/18/19 22 05/18/2021 CBC WITH DIFF abs. monocytes 0.63 x10'3 /uL 0.24-0 .86 Not Available [facility] (Lab) [address], [place], [address], 05/18/2021 08:50:53 05/18/19 22 05/18/2021 CBC WITH DIFF abs. eosinophils 0.08 x10'3 /uL 0.04-0 .36 Not Available [facility] (Lab) [address], [place], [address], 05/18/2021 08:50:53 05/18/19 22 05/18/2021 CBC WITH DIFF abs. basophils 0.01 x10'3 /uL 0.01-0 .08 Not Available [facility] (Lab) [address], [place], [address], 05/18/2021 08:50:53 05/18/19 22 05/18/2021 CBC WITH DIFF abs. immature grans 0.02 x10'3 /uL 0.00-0 .49 Not Available [facility] (Lab) [address] [facility], [place], [address], 05/18/2021 08:50:53 05/18/19 22 05/18/2021 CBC WITH DIFF RBC morphology SLIDE REVIEW ED Not Available [facility] (Lab) [address] [facility], [place], [address], 05/18/2021 08:50:53 05/18/19 22 05/18/2021 CBC WITH DIFF anisocytosis 1+ Not Available [facility] (Lab) [address], [place], [address], 05/18/2021 08:50:53 05/18/19 22 05/18/2021 CBC WITH DIFF microcytosis 1+ Not Available [facility] (Lab) [address], [place], [address], 05/18/2021 08:50:53 05/18/19 22 05/18/2021 CBC WITH DIFF polychromasi a 1+ Not Available [facility] (Lab) [address], [place], [address], 05/18/2021 08:50:53 05/18/19 22 05/18/2021 CBC WITH DIFF platelet estimate ADEQUA TE Not Available [facility] (Lab) [address], [place], [address], 05/18/2021 08:50:53 05/18/19 22 05/21/2021 JOANA SURGI LIANE PATHO LOGY [facility] [address] [facility] [address] Phone : [phone] Fax: Depar tment of Patho logy Patho logy Repor t SURGI LIANE FINAL REPOR T Patie nt Name: ADELE BARROSO estefany# : [id number] [phone] (Age: 25) Locat ion: JESSICA Aleman r: [place] Colle cted Date: Med Rec #: [id number] Date Recei mp: Date Repor yamileth: 2021 Provi duane: JAY KNOX MD Speci men(s ) Place nta and Umbil ical Cord Final Patho logic Diagn osis PLACE NTA AND UMBIL ICAL CORD, VAGIN AL DELIV WILLEM: [address] NTA ([address] THAN [address] PERCE NTILE FOR GESTA VALENTIN L AGE) THREE -VESS EL UMBIL ICAL CORD WITH NO HISTO PATHO LOGIC ABNOR MALIT Y MEMBR ANES WITH PARTI AL CIRCU MVALL ATE INSER TION FOCAL PERIV ILLOU S FIBRI N DEPOS ITION INVOL VING LESS THAN 5% OF PLACE NTAL PAREN CHYMA MATUR E VILLO US MORPH OLOGY Zahira ctron icall y Valeri d Out DON GOLDEN MD Patho logis t SMO:l c Micro scopi c Descr iptio n: Micro scopi c exami natio n subst antia padmini above diagn osis. Clini liane Histo ry 39.1 weeks gesta tions , COVID posit sheldon, class 3 obesi ty, chron ic anemi a Gross Descr iptio n Recei mp is a singl e forma logan-f illed conta iner label ed with the patie nt's name (Mireya kaur), date of ( 8), forma logan time 05/18 at 2110, and addit ional ly label ed plac enta. The speci men consi sts of a singl eton place nta, 20.0 x 20.0 x 5.0 cm with an eccen trica lly inser yamileth umbil ical cord, 20.0 cm in lengt h with a diame ter up to 1.4 cm. Secti oning of the cord revea ls three vesse ls and there are no gross ly ident ifiab le true or false knots prese nt. The membr anes are purpl e-sneed semit ransl ucent and have tristen nal to circu mvall ate inser tion (80% circu mvall ate). The surfa ce is purpl e-sneed with salazar l vascu latur e and areas of sligh t white -sneed disco lorat ion. The mater nal surfa ce is red-t an with gross ly intac t cotyl edons and minim al adher ent hemor rhage . The tahmina ed disc weigh s 706 grams . Secti oning of the disc revea ls four gross ly ident ified areas of white -sneed dense disco lored tissu e, rangi ng from 0.5 cm up to 2.4 cm in great est dimen estefany that are less than 5% of the total place ntal disc colle ctive ly (incl uding areas of previ ously menti oned disco lored surfa ce). Secti oning of the disc addit ional ly revea ls multi ple areas fille d with semit ransl ucent white -sneed gelat inous mater ial. Secti oning of the disc addit ional ly revea ls multi ple areas of ragge d-lik e cavit ies that are devoi d of radha nts, rangi ng from 0.5 cm up to 2.2 cm in great est dimen estefany. The cavit y-lik e areas are ill defin ed and do not have a linin g. The remai gabbie cut surfa ce is red-t an and homog eneou s. Repre senta tive secti ons are submi tted as follo ws: 1 - Membr ane roll 2 - Repre senta tive cord 3,4 - Repre senta tive full- thick ness place ntal disc to inclu de repre senta tive cavit y that is devoi d of radha nt upon secti oning of disc (cont iguou s secti on) 5 - Repre senta tive full- thick ness place ntal disc to inclu de repre senta tive area of dense disco lored tissu e 6 - Repre senta tive gross ly unrem arkab le place ntal disc :lc Mando álvarez Fee Code( s): 67881 Not Available [facility] (Lab) [address] [place], [address], 05/21/2021 15:57:16 05/19/19 22 05/19/2021 CBC WITH DIFF WBC 8.3 x10'3 /uL 4.5-11 .0 Not Available [facility] (Lab) [address] [place], [address], 05/19/2021 08:50:20 05/19/1905/19/2021 CBC WITH DIFF RBC 4.40 x10'6 /uL 4.20-5 .40 Not Available [facility] (Lab) [address], [place], [address], 05/19/2021 08:50:20 05/19/19 22 05/19/2021 CBC WITH DIFF hemoglobin 9.7 g/dL 12.0-1 6.0 low Not Available [facility] (Lab) [address], [place], [address], 05/19/2021 08:50:20 05/19/19 22 05/19/2021 CBC WITH DIFF hematocrit 32.6 % 38.0-4 8.0 low Not Available [facility] (Lab) [address], [place], [address], 05/19/2021 08:50:20 05/19/1905/19/2021 CBC WITH DIFF MCV 74.1 fL 81.0-9 9.0 low Not Available [facility] (Lab) [address], [place], [address], 05/19/2021 08:50:20 05/19/19 22 05/19/2021 CBC WITH DIFF MCH 22.0 pg 27.0-3 1.0 low Not Available [facility] (Lab) [address], [place], [address], 05/19/2021 08:50:20 05/19/19 22 05/19/2021 CBC WITH DIFF MCHC 29.8 g/dL 32.0-3 6.0 low Not Available [facility] (Lab) [address], [place], [address], 05/19/2021 08:50:20 05/19/19 22 05/19/2021 CBC WITH DIFF RDW 20.7 % 11.5-1 4.5 high Not Available [facility] (Lab) [address], [place], [address], 05/19/2021 08:50:20 05/19/19 22 05/19/2021 CBC WITH DIFF platelet count 204 x10'3 /uL 130-40 0 Not Available [facility] (Lab) [address], [place], [address], 05/19/2021 08:50:20 05/19/19 22 05/19/2021 CBC WITH DIFF MPV 10.1 fL 9.3-12 .2 Not Available [facility] (Lab) [address], [place], [address], 05/19/2021 08:50:20 05/19/19 22 05/19/2021 CBC WITH DIFF diff type AUTOMA YAMILETH DIFFER ENTIAL Not Available [facility] (Lab) [address], [place], [address], 05/19/2021 08:50:20 05/19/19 22 05/19/2021 CBC WITH DIFF neutrophils 73.5 % Not Available [facility] (Lab) [address], [place], [address], 05/19/2021 08:50:20 05/19/19 22 05/19/2021 CBC WITH DIFF lymphocytes 15.9 % Not Available [facility] (Lab) [address], [place], [address], 05/19/2021 08:50:20 05/19/19 22 05/19/2021 CBC WITH DIFF monocytes 9.3 % Not Available [facility] (Lab) [address], [place], [address], 05/19/2021 08:50:20 05/19/19 22 05/19/2021 CBC WITH DIFF eosinophils 0.7 % Not Available [facility] (Lab) [address], [place], [address], 05/19/2021 08:50:20 05/19/19 22 05/19/2021 CBC WITH DIFF basophils 0.2 % Not Available [facility] (Lab) [address], [place], [address], 05/19/2021 08:50:20 05/19/19 22 05/19/2021 CBC WITH DIFF immature granulocytes 0.4 % Not Available [facility] (Lab) [address], [place], [address], 05/19/2021 08:50:20 05/19/19 22 05/19/2021 CBC WITH DIFF abs. neutrophils 6.12 x10'3 /uL 1.80-7 .70 Not Available [facility] (Lab) [address], [place], [address], 05/19/2021 08:50:20 05/19/19 22 05/19/2021 CBC WITH DIFF abs. lymphocytes 1.32 x10'3 /uL 1.00-4 .80 Not Available [facility] (Lab) [address] [facility], [place], [address], 05/19/2021 08:50:20 05/19/19 22 05/19/2021 CBC WITH DIFF abs. monocytes 0.77 x10'3 /uL 0.24-0 .86 Not Available [facility] (Lab) [address] [place], [address], 05/19/2021 08:50:20 05/19/19 22 05/19/2021 CBC WITH DIFF abs. eosinophils 0.06 x10'3 /uL 0.04-0 .36 Not Available [facility] (Lab) [address], [place], [address], 05/19/2021 08:50:20 05/19/19 22 05/19/2021 CBC WITH DIFF abs. basophils 0.02 x10'3 /uL 0.01-0 .08 Not Available [facility] (Lab) [address] [place], [address], 05/19/2021 08:50:20 05/19/19 22 05/19/2021 CBC WITH DIFF abs. immature grans 0.03 x10'3 /uL 0.00-0 .49 Not Available [facility] (Lab) [address] [place], [address], 05/19/2021 08:50:20 05/19/19 22 05/19/2021 CBC WITH DIFF RBC morphology SLIDE REVIEW ED Not Available [facility] (Lab) [place], [address], 05/19/2021 08:50:20 05/19/19 22 05/19/2021 CBC WITH DIFF anisocytosis 1+ Not Available [facility] (Lab) [address], [place], [address], 05/19/2021 08:50:20 05/19/19 22 05/19/2021 CBC WITH DIFF microcytosis 1+ Not Available [facility] (Lab) [address], [place], [address], 05/19/2021 08:50:20 05/19/19 22 05/19/2021 CBC WITH DIFF polychromasi a 1+ Not Available [facility] (Lab) [address], [place], [address], 05/19/2021 08:50:20 05/19/19 22 05/19/2021 CBC WITH DIFF platelet estimate ADEQUA TE Not Available [facility] (Lab) One [facility] [address] [facility], [place], [address], 05/19/2021 08:50:20 05/19/19 22 05/19/2021 CBC WITH DIFF pathologist review PATHOL OGIST REVIEW TO FOLLOW . Not Available [facility] (Lab) [address], [place], [address], 05/19/2021 08:50:20 05/19/19 22 05/20/2021 PATHO LOGIS T SULMA NT pathologist comment PATHOL OGIST REVIEW ADDED TO REPORT [id number] MODER ATE MICRO CYTIC ANEMI A. SOME HYPOC HROMI C RBC'S SUGGE STIVE OF IRON DEFIC IENCY . SUGGE ST IRON STUDI ES. REVIE WED BY STEVO Pruitt M.D., PATHO LOGIS T. Not Available [facility] (Lab) One [facility] [address] [facility], [place], [address], 05/20/2021 14:05:51 05/12/1905/12/2024 pregn florentin test, urine HCG positi ve Not Available [facility] l[address] [facility], [place], [address], 05/10/2024 16:30:54 04/10/2003/29/2021 US, obste tric, 3rd trime ster No observ ation record ed. [email or web address] [address], [place], [address], 04/10/2021 20:31:16 05/13/1905/12/2024 US, trans vagin al No observ ation record ed. [email or web address] [address], [place], [address], 05/16/2024 11:29:00 Result Notes None recorded. Problems Name Problem SNOMED Code Status Onset Date Resolution Date Notes Provider Name and Address Organization Details Recorded Time Gestatio n period, 15 weeks [id number] Completed 202003/29/2021 15 weeks gestatio n of pregnanc y; Severity : Moderate Progress : Stable Added By: Renzo Gill Add to Current Problems : YES ProblemS tatus: Current Nicole Welch CNM [address] [facility], [place], [address] , [facility] IV 1 09:30:21 Finding of pattern of menstrua l cycle 580598020 Completed 201810/09/2020 Excessiv e and frequent menstrua tion with irregula r cycle; Progress : Stable Added By: Pedrito Adorno Add to Current Problems : NO ProblemS tatus: Resolve Not Available [facility] 2 20:05:29 Antenata l ultrasou nd finding [id number] Completed 201810/09/2020 Encounte r for pregnanc y test, result unknown; Progress : Stable Added By: Destiny Dwyer Add to Current Problems : NO ProblemS tatus: Resolve Not Available [facility] 2 20:05:28 Abnormal uterine bleeding 42022750169 100 Completed 201910/09/2020 Other specifie d abnormal uterine and vaginal bleeding ; Progress : Stable Added By: Roslyn Ashby Add to Current Problems : NO ProblemS tatus: Resolve Not Available [facility] 2 20:05:30 Gestatio n period, 36 weeks 08447058 Completed 201706/10/2018 36 weeks gestatio n of pregnanc y; Progress : Stable Added By: Kelly Colorado Add to Current Problems : NO ProblemS tatus: Resolve Not Available [facility] 2 20:05:29 Clinical finding Completed 202010/09/2020 Other general symptoms and signs; Progress : Stable Added By: Ping Lagos Add to Current Problems : NO ProblemS tatus: Resolve Not Available [facility] 2 20:05:30 Gestatio n less than 9 weeks [id number] Completed 202010/09/2020 Less than 8 weeks gestatio n of pregnanc y; Progress : Stable Added By: Meryl Varela Add to Current Problems : NO ProblemS tatus: Resolve Not Available Counts include 234 beds at the [facility] 2 20:05:28 Gestatio n period, 11 weeks 45197597 Completed 202012/04/2020 11 weeks gestatio n of pregnanc y; Progress : Stable Added By: Renzo Gill Add to Current Problems : NO ProblemS tatus: Resolve Not Available Counts include 234 beds at the [facility] 2 20:05:31 Clinical finding Completed 202011/06/2020 Obesity, unspecif ied; Progress : Stable Added By: Renzo Gill Add to Current Problems : NO ProblemS tatus: Resolve Not Available Counts include 234 beds at the [facility] 2 21:23:51 Uterine size for dates discrepa ncy 194169497 Completed 201706/10/2018 Uterine size date discrepa ncy, antepart um conditio n or complica tion; Location : None Progress : Stable Added By: Jay Gilbert Add to Current Problems : YES ProblemS tatus: Current Uterine size date discrepa ncy, antepart um conditio n or complica tion; Progress : Stable Added By: Jay Gilbert Add to Current Problems : NO ProblemS tatus: Resolve Not Available [facility] 2 20:05:26 Gestatio n period, 34 weeks 87215689 Completed 201706/10/2018 34 weeks gestatio n of pregnanc y; Progress : Stable Added By: Arsalan Benedict Add to Current Problems : NO ProblemS tatus: Resolve Not Available [facility] 2 20:05:31 Rubella screenin g status 589857217 Completed 201706/10/2018 Antenata l screenin g; unspecif ied; Location : None Progress : Stable Added By: Arsalan Benedict Add to Current Problems : YES ProblemS tatus: Current Encounte r for antenata l screenin g, unspecif ied; Progress : Stable Added By: Arsalan Benedict Add to Current Problems : NO ProblemS tatus: Resolve Not Available [facility] 2 20:05:28 Gestatio n period, 10 weeks 92585094 Completed 202011/06/2020 10 weeks gestatio n of pregnanc y; Progress : Stable Added By: Renzo Gill Add to Current Problems : NO ProblemS tatus: Resolve Not Available [facility] 2 20:05:30 Procedur e Completed 201810/09/2020 Encounte r for surveill ance of implanta ble subderma l contrace ptive; Progress : Stable Added By: Roslyn Ashby Add to Current Problems : NO ProblemS tatus: Resolve Not Available [facility] 2 20:05:30 Normal pregnanc y in multigra den [id number] 4106 Completed 202012/04/2020 Encounte r for supervis ion of other normal pregnanc y, first trimeste r; Severity : Moderate Progress : Stable Added By: Renzo Gill Add to Current Problems : NO ProblemS tatus: Resolve Encounte r for supervis ion of other normal pregnanc y, second trimeste r; Severity : Moderate Progress : Stable Added By: Martha Burden Add to Current Problems : YES ProblemS tatus: Current; Start Date : 09/23/19 18 Encou nter for supervis ion of other normal pregnanc y, third trimeste r; Severity : Moderate Progress : Stable Added By: Kelly Colorado Add to Current Problems : NO ProblemS tatus: Resolve; Start Date : 09/23/19 18 Marty Guerreromeron [place], [place] [facility] IV 4 11:39:41 Iron deficien cy anemia 12184684 Completed 201705/25/2018 Anemia, Iron Def; Progress : Stable Added By: Arsalan Benedict Add to Current Problems : NO ProblemS tatus: Resolve Iron deficien cy anemia, unspecif ied; Progress : Stable Added By: Arsalan Benedict Add to Current Problems : NO ProblemS tatus: Resolve Not Available Counts include 234 beds at the [facility] 2 20:05:27 Abnormal finding on antenata l screenin g of mother 247388805 Completed 202003/29/2021 Unspecif ied abnormal findings on antenata l screenin g of mother; Severity : Moderate Progress : Stable Added By: Jay Gilbert Add to Current Problems : YES ProblemS tatus: Current Nicole Welch CNM [address] [place], [address] , [facility] IV 1 09:30:18 Gestatio n period, 19 weeks 14586973 Completed 202003/29/2021 19 weeks gestatio n of pregnanc y; Severity : Moderate Progress : Stable Added By: Meryl Varela Add to Current Problems : YES ProblemS tatus: Current Nicole Welch CNM [address] [place], [address] , [facility] IV 09:30:38 Gestatio n period, 24 weeks 918391922 Completed 202003/29/2021 24 weeks gestatio n of pregnanc y; Severity : Moderate Progress : Stable Added By: Musseman n, Martha Add to Current Problems : YES ProblemS tatus: Current Nicole Alton Welch, CNM [address] [facility], [place], [address] , [facility] IV 1 09:30:29 Gestatio n period, 20 weeks 62015087 Completed 202003/29/2021 20 weeks gestatio n of pregnanc y; Severity : Moderate Progress : Stable Added By: Meryl Varela Add to Current Problems : YES ProblemS tatus: Current Nicole Welch, CN [address] [facility], [place], [address] , [facility] IV 1 09:30:26 Pregnanc y 41235050 Completed 202003/29/2021 Nicole Welch, SHAD [address] [place], [address] , [facility] IV 09:30:35 Low lying placenta 836344760 Completed Low lying placenta at anatomy screen. Plan recheck at 32 weeks; Resolved Bridgette Paiz DO [address] [place] [address], [address] , [facility] IV 2 22:37:11 ultrasou nd increase d nuchal transluc ency [id number] 9107 Completed QNatal and Penta low risk. MFM U/S normal on 01/24/21. Has repeat scan 02/22/21 . Bridgette Paiz DO [address] [place] [address], [address] , [facility] IV 2 22:37:11 RhD negative 186913046 Completed S/P Rhogam early pregnanc y. 03/01 Rhogam order given with instruct ions. 4. Postive antibody screen Anti D <1:1, repeat 12/04 unchange d. Bridgette Paiz DO [address] [place] [address], [place], [address] , [facility] [facility] IV 2 22:37:11 Anemia of pregnanc y 78724585 Completed Anemia-H gb 8.1 Iron studies drawn 03/15, Iron ordered Bridgette Paiz, DO [address] [facility], [place], [address] , [facility] IV 2 22:37:11 Allergy to penicill in 56957191 Completed PCN allergy -anaphyl axis - sensitiv ity with GBS. Bridgette Paiz, DO [address] [facility], [place], [address] , [facility] IV 2 22:37:11 Allergy to drug 288165962 Completed PCN allergy - need sensitiv ity w/GBS Nicole Dang Yuri, CNM [address] [facility], [place], [address] , [facility] [employer] [facility] IV 1 10:53:59 anatomy study Completed 201701/20/2024 Encounte r for anatomic survey; Location : None Progress : Stable Added By: Arsalan Benedict Add to Current Problems : YES ProblemS tatus: Current Marty Ireland null, [employer] [facility] [employer] [facility] IV 4 11:39:46 Gestatio n period, 30 weeks [id number] Completed 202001/20/2024 30 weeks gestatio n of pregnanc y; Progress : Stable Added By: Meryl Varela Add to Current Problems : YES ProblemS tatus: Current Marty Ireland null, [employer] [facility] IV 4 11:39:38 Antenata l screenin g Completed 202001/20/2024 Encounte r for antenata l screenin g of mother; Progress : Stable Added By: Arsalan Benedict Add to Current Problems : NO ProblemS tatus: Resolve; Start Date : 12/19/19 18 Encou nter for other specifie d antenata l screenin g; Progress : Stable Added By: Meryl Varela Add to Current Problems : YES ProblemS tatus: Current Marty Ireland null, [employer] [facility] IV 4 11:39:24 Screenin g for malignan t neoplasm of cervix Completed 202010/09/2020 Encounte r for screenin g for malignan t neoplasm of cervix; Progress : Stable Added By: Evelyn Hendrix Add to Current Problems : NO ProblemS tatus: Resolve Not Available [facility] 2 20:05:27 Normal pregnanc y 76786286 Completed 201703/12/2018 Medical visit for normal pregnanc y; Location : None Progress : Stable Added By: Stacey Ochoa Add to Current Problems : YES ProblemS tatus: Resolve Medical visit for normal pregnanc y; Location : None Progress : Stable Added By: Arsalan Benedict Add to Current Problems : YES ProblemS tatus: Current Not Available [facility] 2 20:05:27 Gestatio n period, 28 weeks [id number] Completed 202001/20/2024 28 weeks gestatio n of pregnanc y; Progress : Stable Added By: Evelyn Hendrix Add to Current Problems : YES ProblemS tatus: Current Marty Ireland null, [employer] [facility] IV 4 11:39:35 Anemia Completed 202001/20/2024 Anemia complica ting pregnanc y, second trimeste r; Progress : Stable Added By: Stacey Decker Add to Current Problems : YES ProblemS tatus: Current Marty Ireland null, [employer] [facility] IV 4 11:39:22 Antenata l screenin g for malforma tion Completed 202001/20/2024 Encounte r for antenata l screenin g for malforma tions; Progress : Stable Added By: Meryl Varela Add to Current Problems : YES ProblemS tatus: Current Marty Ireland null, [employer] [facility] IV 4 11:39:30 Normal pregnanc y in multigra den [id number] 4106 Completed 202001/20/2024 Encounte r for supervis ion of other normal pregnanc y, first trimeste r; Progress : Stable Added By: Renzo Gill Add to Current Problems : NO ProblemS tatus: Resolve; Start Date : 05/16/19 21 Encou nter for supervis ion of other normal pregnanc y, second trimeste r; Progress : Stable Added By: Martha Burden Add to Current Problems : YES ProblemS tatus: Current; Start Date : 12/05/19 21 Encou nter for supervis ion of other normal pregnanc y, third trimeste r; Progress : Stable Added By: Meryl Varela Add to Current Problems : YES ProblemS tatus: Current Marty mancilla, [employer] [facility] [employer] IV 4 11:39:41 Problem Notes None recorded. Procedures Surgical History Date Name Laterality Status Provider Name and Address Organization Details Recorded Time 4 Nexplanon Removal completed Nicole Welch, [facility] [address] [facility], [place], [address], [employer] [facility] [employer] IV 01/20/2024 11:36:52 Date of Last Pap Smear completed Meryl Varela [facility] [employer] IV 03/29/2021 00:06:53 Imaging Results Imaging Date Name Status LastModified by Organization Details LastModified Time 03/29/2021 US, obstetric, 3rd trimester completed Sirisha [address], [place], [address], 04/10/2021 20:31:16 05/12/2024 US, transvaginal completed [email or web address] [address]isha [address], [place], [address], 05/16/2024 11:29:00 Procedure Notes None recorded. Medical Equipment None Reported. Allergies Allergen ID Allergen Name Allergen Category Reaction Reaction Severity Criticality Documentation Date Start Date Code Code System Note Provider Name and Address Organization Details Recorded Time [id number] Product containin g penicilli n and antibioti c (product) medicatio n Not available Not available Not available 03/01/20212017 03842 05 SNOMED Sever ity: Moder ate; Not Available Not Available Not Available Medications Name Sig Start Date Stop Date Status Note LastModified by Organization Details LastModified Time cyclobenz aprine 10 mg tablet 01/19 completed Not Available Not Available Not Available ibuprofen 800 mg tablet TAKE 1 TABLET BY MOUTH EVERY 8 HOURS NEEDED 03/29 completed Not Available Not Available Not Available Vitamin tablet Take 1 tab PO daily 11/21 completed Multivit moon Tablet Allow Substitu tion: True Refill Denied: No Refill Note: Auto Aged Refill DateOccu rred: 09/23/19 18 Not Available Not Available Not Available estradiol 1 mg tablet take 1 tablet (1 mg) by oral route once daily 11/09 completed estradio l 1 mg oral tablet RxNorm: 923943 Allow Substitu tion: True Refill Denied: No Edited by: Roslyn Pride ) on 11/10/19 Stopped by: Roslyn Pride ) on 11/10/19 Not Available Not Available Not Available Flagyl 500 mg tablet take 1 tablet (500 mg) by oral route 2 times per day for 7 days 10/09 completed FlagyL 500 mg oral tablet RxNorm: 527217 Allow Substitu tion: True Refill Denied: No Edited by: Renzo Jacobs ) on 10/10/19 Stopped by: klaudia pruitt(Renzo Herzog ) on 10/10/19 Not Available Not Available Not Available promethaz ine 25 mg tablet TAKE 1 TABLET BY MOUTH EVERY 6 HOURS NEEDED 03/29 completed Not Available Not Available Not Available docusate sodium 100 mg capsule 1 p.o. bid 07/25 completed Docusate Sodium 100mg Capsules Allow Substitu tion: True Refill Denied: No Not Available Not Available Not Available omeprazol e 20 mg capsule,d elayed release TAKE 1 CAPSULE BY MOUTH TWICE DAILY BEFORE MEALS FOR 30 DAYS. active Not Available Not Available No t Available albuterol sulfate HFA 90 mcg/actua tion aerosol inhaler INHALE 2 PUFFS BY MOUTH THREE TIMES DAILY NEEDED active Not Available Not Available No t Available hydroxyzi ne HCl 10 mg tablet TAKE 1 TO 2 TABLETS BY MOUTH UP TO THREE TIMES DAILY NEEDED 05/12 completed Not Available Not Available Not Available hydroxyzi ne pamoate 25 mg capsule 01/19 completed Not Available Not Available Not Available FeroSul 325 mg (65 mg iron) tablet TAKE 1 TABLET BY MOUTH TWICE DAILY FOR 30 DAYS active Not Available Not Available No t Available Nexplanon 68 mg subdermal implant 11/13 completed Nexplano n 68 mg Subderma l Implant RxNorm: [id number] Allow Substitu tion: False Refill Denied: No Refill DateOccu rred: 02/18/20 Edited by: jass(R eyes, Nicole ) on 11/14/19 Stopped by: jass(Lacey eyes, Nicole ) on 11/14/19 20 Not Available Not Available Not Available 28 mg iron-800 mcg tablet 1 tab po every day 2024 active Not Available Not Available Not Avai lable Estarylla 0.25 mg-35 mcg tablet TAKE ONE TABLET BY MOUTH DAILY DIRECTED 03/29 completed Not Available Not Available Not Available Aurovela Fe 1-20 (28) 1 mg-20 mcg (21)/75 mg (7) tablet TAKE 1 TABLET BY MOUTH EVERY DAY 03/29 completed Not Available Not Available Not Available Nextstell is 3 mg-14.2 mg (28) tablet Take 1 tablet every day by oral route. 05/12 completed Not Available Not Available Not Available Vitals Date Recorded Body height Provider Name an d Address Organization Details Last Updated DateTime 05/02/2021 167.64 cm [facility] [employer] [facility] IV 05/02/2021 11:01:12 Date Recorded Body mass index (BMI) Provider Name and Address Organization Details Last Updated DateTime 05/02/2021 37.3 kg/m2 [facility] [employer] [facility] IV 05/02/2021 11:01:22 Date Recorded Body weight Provider Name an d Address Organization Details Last Updated DateTime 05/02/2021 395741.39850 g Apolonia Hurtado, [facility] [address], [place], [address], [employer] [facility] IV 05/02/2021 11:34:46 Date Recorded Body temperature Provider Name a nd Address Organization Details Last Updated DateTime 05/02/2021 97.9 [degF] [facility] IV 05/02/2021 11:01:38 Date Recorded Body height Provider Name an d Address Organization Details Last Updated DateTime 05/09/2021 167.64 cm Maria A Wilks [facility] IV 05/09/2021 14:19:27 Date Recorded Body mass index (BMI) Provider Name and Address Organization Details Last Updated DateTime 05/09/2021 36.8 kg/m2 Maria A Wilks [facility] IV 05/09/2021 14:25:02 Date Recorded Body weight Provider Name an d Address Organization Details Last Updated DateTime 05/09/2021 643607.83377 g СЕРГЕЙ LAGUNA, [facility] [address] [place], [address], [facility] IV 05/11/2021 01:15:29 Date Recorded Body temperature Provider Name a nd Address Organization Details Last Updated DateTime 05/09/2021 97.8 [degF] Maria A Wilks [facility] IV 05/09/2021 14:25:05 Date Recorded Body height Provider Name an d Address Organization Details Last Updated DateTime 07/17/2021 167.64 cm Evelyn Duft [facility] IV 07/17/2021 15:55:11 Date Recorded Body mass index (BMI) Provider Name and Address Organization Details Last Updated DateTime 07/17/2021 33.3 kg/m2 Evelyn Duft [facility] 07/17/2021 15:59:15 Date Recorded Body weight Provider Name an d Address Organization Details Last Updated DateTime 07/17/2021 85256.656979 g Bridgette Paiz DO [address] [place], [address], [facility] IV 07/17/2021 22:37:11 Date Recorded Body temperature Provider Name a nd Address Organization Details Last Updated DateTime 07/17/2021 98.3 [degF] Evelyn Duft [facility] 07/17/2021 15:59:18 Date Recorded Body height Provider Name an d Address Organization Details Last Updated DateTime 01/20/2024 165.1 cm Marty Ireland [facility] IV 01/20/2024 11:37:57 Date Recorded Body mass index (BMI) Body weight Provider Name and Address Organization Details Last Updated DateTime 01/20/2024 37.1 kg/m2 214783.1 g Marty Ireland [employer] [facility] IV 01/20/2024 11:41:38 Date Recorded Body height Provider Name an d Address Organization Details Last Updated DateTime 05/12/2024 165.1 cm Kim [facility] IV 05/12/2024 10:59:46 Date Recorded Body mass index (BMI) Body weight Provider Name and Address Organization Details Last Updated DateTime 05/12/2024 37.4 kg/m2 242672.56 [facility] [employer] [facility] IV 05/12/2024 11:10:24 Date Recorded Body temperature Provider Name a nd Address Organization Details Last Updated DateTime 05/12/2024 97.8 [degF] [facility] 05/12/2024 11:10:33 Date Recorded Systolic blood pressure Diastolic blood pressure Provider Name and Address Organization Details Last Updated DateTime 05/02/2021 116 mm[Hg] 72 mm[Hg] Evelyn Hendrix [employer] [facility] IV 05/02/2021 11:01:18 Date Recorded Systolic blood pressure Diastolic blood pressure Provider Name and Address Organization Details Last Updated DateTime 05/09/2021 112 mm[Hg] 70 mm[Hg] Maria A Wilks [place] [facility] IV 05/09/2021 14:24:53 Date Recorded Systolic blood pressure Diastolic blood pressure Provider Name and Address Organization Details Last Updated DateTime 07/17/2021 116 mm[Hg] 72 mm[Hg] Evelyn Hendrix [employer] [facility] IV 07/17/2021 15:59:07 Date Recorded Systolic blood pressure Diastolic blood pressure Provider Name and Address Organization Details Last Updated DateTime 01/20/2024 100 mm[Hg] 68 mm[Hg] Marty Ireland [facility] IV 01/20/2024 11:44:51 Date Recorded Systolic blood pressure Diastolic blood pressure Provider Name and Address Organization Details Last Updated DateTime 05/12/2024 116 mm[Hg] 70 mm[Hg] Kim [facility] [facility] IV 05/12/2024 11:10:06 Social History Question Answer Notes LastModified by Organizat ion Details LastModified Time Tobacco Smoking Status Never Smoker Marty Ireland [facility], [facility] 01/20/2024 11:34:26 What Is Your Level Of Alcohol Consumption? Occasional Information not available 01/20/2024 If You Are , What Was Your Level Of Alcohol Consumption Prior To ? None Information not available 03/29/2021 Are You Blind Or Do You Have Difficulty Seeing? No Information not available 03/29/2021 Are You Currently Employed? Yes Information not available 01/20/2024 Are You Deaf Or Do You Have Serious Difficulty Hearing? No Information not available 03/29/2021 What Type Of Diet Are You Following? REGULAR Information not available 01/20/2024 How Many Children Do You Have? 3 Information not available 01/20/2024 Are There Any Occupational Health Risks Where You Work? No Information not available 01/20/2024 What Is Your Relationship Status? Single Information not available 03/29/2021 Are You Sexually Active? Yes Information not available 01/20/2024 Do You Use Any Illicit Or Recreational Drugs? No Information not available 03/29/2021 Do You Or Have You Ever Used Any Other Forms Of Tobacco Or Nicotine? No Information not available 03/29/2021 Sex: Unknown Functional Status Question Answer Note LastModified by Organizat ion Details LastModified Time What is your exercise level? Occasional Information not available 01/20/2024 Mental Status None recorded. Family History Relationship Description Onset Age of this Age Resolved Age Notes LastModified by Organization Details LastModified Time Paternal Grandmother Type 2 diabetes mellitus [email or web address] Not available 2020 00:15:36 Mother Type 2 diabetes mellitus [email or web address] Not available 2020 00:15:36 Medical History Condition Response Other Cancer N High Blood Pressure N Colon Cancer N Cytomegalovirus N Hyperthyroidism N Breast Cancer N Herpes (HSV) N MRSA N Blood Transfusion N Lung Cancer N Hypothyroidism N Depression N Incontinence N Panic Attacks N Neurological Disorder N Deep Vein Thrombosis N Anxiety Disorder Y Autoimmune disease N Arthritis N Shingles N Tuberculosis/Positive PPD N Polycystic Ovarian Syndrome N Cervical Cancer N Chlamydia N Hematuria N Stroke N Varicosities N Seasonal allergies N Crohn's Disease N Alzheimer's/Dementia N COPD/Emphysema N Endometriosis N HPV/Genital Warts N IBS (Irritable Bowel Syndrome) N History of Abnormal Pap N High Cholesterol N Liver Disease N Kidney Infection N Fibromyalgia N Ulcer N Kidney Disease N HIV N Gallbladder disease N Von Willebrand disease N Sickle Cell Disease/Trait N ADD/ADHD N Eating Disorder N Diabetes Mellitus (non-insulin dependent ) N Anemia N Ovarian Problems N Multiple Sclerosis N Gonorrhea N Frequent Urinary Tract infections N Osteopenia N Headaches/migraines N GERD (reflux) N Ovarian Cancer N Diabetes (insulin dependent) N Seizures/Epilepsy N Fibroids N Asthma N Heart Attack N Endometrial Cancer N Lupus N Rubella N Blood Clotting Disorder N Bipolar Disorder N Diabetes Mellitus (during ) N Ulcerative Colitis N Hepatitis N Heart Disease N Pulmonary Embolism N RPR N Chicken Pox N Osteoporosis N Gynecological History Statement/Question Response Flow Light Frequency of Cycle (Q days) 14 Date of LMP Most Recent Bone Density HPV Vaccine N Date of Last Pap Smear 05/16/2020 Duration of Flow (days) 30 Most Recent Mammogram Current Control Method Age at Menarche 14 Obstetrics History GPAL:G 7 P 3 0 4 3 Type Value Multiple Births 0 Full Term 3 Induced 4 Spontaneous 0 Premature 0 Living 3 Ectopics 0 Total 7 Past Encounters Encounter ID Performer Location Encounter Start Date Encounter Closed Date Diagnosis/Indication Diagnosis SNOMED-CT Code Diagnosis ICD10 Code Diagnosis Note [id number] Nicole Welch CNM [facility] [address] [place] [address] 03/29/2021 11:18:02 03/31/2021 19:25:09 Normal in multigravida 2514642430 69620 Z34.83 Gestation period, 32 weeks 1870461 Z3A.32 Low lying placenta 18653 2006 O44.43 screening 2437 06523 Z36.89 Pelvic girdle pain 72780 9001 R10.2 significan t pelvic girdle pain and lower back pain. PT referral to [facility] [id number] Nicole Welch CNM [address] [place] [address] 04/12/2021 10:16:36 04/12/2021 12:03:21 Normal in multigravida 2298241733 90685 Z34.83 Gestation period, 34 weeks 41100557 Z3A.34 [id number] SUNNY RACHEL, [facility] [address] [place] [address] 04/26/2021 10:11:30 04/26/2021 11:28:43 Routine care 918757854 Z34.93 Declined SVE today. Vaginal swab taken 23399 3009 Z75.2 collected today. [id number] Apolonia Hurtado, [facility] [address] [facility], [place] [address] 05/02/2021 10:38:14 05/15/2021 10:09:57 Routine care 559648304 Z34.83 [id number] СЕРГЕЙ MURILLOWayne LAGUNA, [facility] [address] [place] [address] 05/09/2021 14:13:13 05/11/2021 01:18:01 Gestation period, 38 weeks 62790507 Z3A.38 Normal pre gnancy in multigravida 8994645874 30756 Z34.83 [id number] Bridgette Paiz, [facility] [address] [place] [address] 07/17/2021 15:37:31 07/17/2021 16:49:14 state 54945382 Z39.2 Counseling for elective sterilization done 3216031784 75747 Z30.2 [id number] Nicole Welch, [facility] [address] [place] [address] 01/20/2024 11:29:35 01/20/2024 12:09:29 Subcutaneous contraceptive implant present 255147142 Z30.46 Pt would like to have permanent sterilizat ion. Consents signed today. Will schedule w/Dr Cast for pre-op. David s for bridge. Initial pr escription of oral contraception 583183572 Z30.011 COUNSELING was provided today regarding the following: - CHC use was discussed with the patient in detail including starting CHC risks, benefits, side effects, and ACHES. - Backup contracept ion x 2 weeks after quick start today - Back-up contracept ion was encouraged if the patient misses pills or takes antibiotic s. - Condoms should be used for STI prevention . - No absolute or relative contraindi cations to LAUREN use were identified [id number] MING COSME [facility] [address] [place] [address] 05/12/2024 10:12:10 05/12/2024 11:56:56 test positive 040775463 Z32.01 Pt presents today for a confirmati on of visit. has not been previously confirmed at another healthcare facility. Pt voiced that she is happy about this . TVUS today showed:IUP with Cardiac Activity. CRL too small to measure for ROMEL. Recommenda tion repeat US for viability and dating ROMEL: Unable to determine yet due to being too earlyFHT: 105 First trimester teaching provided.- --Foods and activities to avoid---Sa fe meds---Delgado entation to practice-- -Delivery locations- --JT visit progressio n---Prenat al vitamins daily--- Toxoplasmo sis precaution s reviewed-- -S/S of SAB reviewed and when to seek care RTC 1 weeks for viability check --BMI: 37.4 Nausea and vomiting in 2559864792 O21.9 Pt educated on smaller/mo re frequent meals, pushing p.o. water intake, and avoiding spicy/frie d foods. Pt encouraged to notify HCP if no relief. Pt states understand ing of POC. Health Concerns Section Related Observation LastModified by Organization Detai ls LastModified Time None Recorded Concern Status LastModified by Organization Details LastModified Time None Recorded Advance Directives Directive None Recorded Payers Encounter Date Sequence Insurance Name Policy Number Policy Coleman Covered Member ID Coleman Member ID Guarantor Name 05/02/2021 1 [facility] ON OR AFTER 11/08/20 (MEDICAID REPLACEMENT - HMO) Nimo Silverman [id number] Nimo Silverman 05/09/2021 1 [facility] ON OR AFTER 20 (MEDICAID REPLACEMENT - HMO) Nmio Silverman [id number] Nimo Silverman 07/17/2021 1 [facility] ON OR AFTER 11/08/20 (MEDICAID REPLACEMENT - HMO) Nimo Awais Silverman [id number] Nimo Tavia Andra 01/20/2024 1 [facility] ON OR AFTER 11/08/20 (MEDICAID REPLACEMENT - HMO) Nimo Silverman [id number] Nimo Tavia Silverman 05/12/2024 1 [facility] ON OR AFTER 11/08/20 (MEDICAID REPLACEMENT - HMO) Nimo Silverman [id number] Nimo Silverman Notes Date Note Type Note Provider Name and Address Organization Details Recorded Time 05/02/2021 text/html OB ProblemReport ed bypatient.Associated Symptoms:no abdominal pain; no cramping; no contractions; normal movement; no bleeding; no ROM; no vaginal discharge; no vaginal/vulvar itching or irritation; no edema; no visual changes; no headache; no dizziness; no breathlessness Apolonia Hurtado [address] [place], [address], [facility] [employer] IV 05/02/2021 11:37:47 05/09/2021 text/html OB ProblemReport ed bypatient.Associated Symptoms:no abdominal pain; no cramping; no contractions; normal movement; no bleeding; no ROM; no vaginal discharge; no vaginal/vulvar itching or irritation; no dysuria; no frequency; no urgency; no hematuria; no fever; no nausea; no emesis; no constipation; no diarrhea/loose stool; no edema; no visual changes; no headache; no dizziness; no decrease in urine volume; no breathlessness; no hyper-reflexia СЕРГЕЙ RAMÓN LAGUNA [facility] [address] [place], [address], [facility] [employer] IV 05/11/2021 01:17:48 07/17/2021 text/html Patient presents 8.4 weeks . Delivered 05/18/21, Dr Gilbert the physician, , viable male weighing 8lbs, 14oz, apgars 8,9, epidural anesthesia and no lacerations. Patient desires permanent sterilization for contraception. Bridgette Paiz, DO [address] [facility], [place], [address], [facility] [employer] IV 07/17/2021 22:38:28 01/20/2024 text/html Nimo is a 28 y/o woman here to get her nexplanon removal. She reports her periods have been continuous for 2 yrs. She had the Nexplanon inserted in 2021. She is unsure if she wants another form of BC. She was looking into permanant sterilization. Nicole Welch, BRIANNA [address], [place], [address], [facility] [employer] [facility] 01/20/2024 12:33:23 05/12/2024 text/html Confirmation VisitReported bypatient.obstetrics and gynecologydate positive test: (05/12/24) Pt presents for OB confirmation visit. Pt's LMP unknown. Pt is feels excited about . Pt denies bleeding, cramping. Patient reports increase in breast tenderness and nausea that she has not had in previous pregnancies. Denies any interventions at this time. Pt states she is currently not taking any medications. Pt has no other concerns. ANNA RODRIGUEZ, MING [address] [facility], [place], [address], [facility] [employer] IV 05/12/2024 11:25:45 OBGyn Episode Ob Episode Information Episode Created Date Number of Fetuses Patient Bloodtype Patient rh Status Prepregnancy Weight lbs Domestic Partner Domestic Partner Phone Father Name Orthopedic Physician Status 03/29/20 21 1 CLOSED Fetus Data First Name Last Name Admitted to NICU Weight (g) Sex Living Outcome Pediatric Complications Fetus ID Race Codes Race Delivery Type 4195.72 6 M Full Term 11510 Romel Calculation Initial Romel Date Initial Exam Date Initial Exam Provider Initial Ultrasound Date Last Menstrual Period Date Ultra Sound Weeks Gestation 0 Eighteen To Twenty Week Romel Update Ultra Sound Date Fundal Height At Umbil Quickening Date Ultra Sound Latest Weeks Gestation Final Romel Confirmed By Final Romel Confirmed Date Final Romel Date Ultra Sound Latest Days Gestation 0 0 Menstrual History Last Menstrual Date Menses Monthly On Bcp Conception Prior Menses Frequency Hcg Plus Date Menarche Onset Age Delivery Information Delivery Date Delivery Type Labor Anesthesia Weeks Gestation Incision Type Labor Labor Length Hrs Delivered By Post Complications Tubal Sterilization Discharge Date Comments 8 Regional-Ep idural 39 omid Welch CNMW Discharge Information Feeding Method Contraceptive Method Maternal HG B and HCT Levels Ob Episode Information Episode Created Date Number of Fetuses Patient Bloodtype Patient rh Status Prepregnancy Weight lbs Domestic Partner Domestic Partner Phone Father Name Orthopedic Physician Status 03/29/20 21 1 CLOSED Fetus Data First Name Last Name Admitted to NICU Weight (g) Sex Living Outcome Pediatric Complications Fetus ID Race Codes Race Delivery Type , Induced [id number] Romel Calculation Initial Romel Date Initial Exam Date Initial Exam Provider Initial Ultrasound Date Last Menstrual Period Date Ultra Sound Weeks Gestation 0 Eighteen To Twenty Week Romel Update Ultra Sound Date Fundal Height At Umbil Quickening Date Ultra Sound Latest Weeks Gestation Final Romel Confirmed By Final Romel Confirmed Date Final Romel Date Ultra Sound Latest Days Gestation 0 0 Menstrual History Last Menstrual Date Menses Monthly On Bcp Conception Prior Menses Frequency Hcg Plus Date Menarche Onset Age Delivery Information Delivery Date Delivery Type Labor Anesthesia Weeks Gestation Incision Type Labor Labor Length Hrs Delivered By Post Complications Tubal Sterilization Discharge Date Comments 1 8 Discharge Information Feeding Method Contraceptive Method Maternal HG B and HCT Levels Ob Episode Information Episode Created Date Number of Fetuses Patient Bloodtype Patient rh Status Prepregnancy Weight lbs Domestic Partner Domestic Partner Phone Father Name Orthopedic Physician Status 03/29/20 21 1 O Negative CLOSED Fetus Data First Name Last Name Admitted to NICU Weight (g) Sex Living Outcome Pediatric Complications Fetus ID Race Codes Race Delivery Type false 4025.62 9 M true Full Term [id number] Problems Problem Notes 28 wks gtt 116; 8.1/27.7/470 Problem Name Start Date End Date Resolution Snomed Code Not e Allergy to penicillin [id number] PCN allergy -anaphylaxis - sensitivity with GBS. Low lying placenta SELFRESOLVED [id number] Low lying placenta at anatomy screen. Plan recheck at 32 weeks; Resolved ultrasound increased nuchal translucency [id number] QNatal and P enta low risk. MFM U/S normal on 01/24/21. Has repeat scan 02/22/21. RhD negative [id number] S/P Rho mili early . 03/01 Rhogam order given with instructions. 4. Postive antibody screen Anti D <1:1, repeat 12/04 unchanged. Anemia of [id number] Anemia-Hgb 8.1 Iron studies drawn 03/15, Iron ordered Romel Calculation Initial Romel Date Initial Exam Date Initial Exam Provider Initial Ultrasound Date Last Menstrual Period Date Ultra Sound Weeks Gestation 05/24/2021 10/09/2020 10/09/2020 07/28/2020 7 Eighteen To Twenty Week Romel Update Ultra Sound Date Fundal Height At Umbil Quickening Date Ultra Sound Latest Weeks Gestation Final Romel Confirmed By Final Romel Confirmed Date Final Romel Date Ultra Sound Latest Days Gestation 0 [email or web address] 03/29/2021 05/24/19 22 0 Pre-cinthya Flowsheet Flowsheet Date 03/29/2021 Daly Score Blood Edema Fundus Height Fundus Units Glucose Ketones Leukocytes Nitrite Labor Signs Protein Cervic Dilation Cervic Effacement Cervic Station none none Other (see comments ) Type Weight in lbs Pre/Post Dialysis Refused With clothes 231.516510439496 BP Diastolic BP Location Tested BP Systolic BP Type 76 R arm 124 sitting Fetus Heart Rate Present A 159 Fetus Movement A Yes Comments Aneuploidy screening: QNatal and Penta low risk Anatomy Scan: Complete. BOY O negative, RI/ GTT 116 Pelvic girdle pain - PT referral sent Flowsheet Date 04/12/2021 Daly Score Blood Edema Fundus Height Fundus Units Glucose Ketones Leukocytes Nitrite Labor Signs Protein Cervic Dilation Cervic Effacement Cervic Station trace 35 none Saurabh Ribeiro neg Type Weight in lbs Pre/Post Dialysis Refused BP Diastolic BP Location Tested BP Systolic BP Type 70 L arm 108 sitting Fetus Heart Rate Present A 148 Fetus Movement A Yes Comments Pelvic girdle pain - relief measures discussed; previous referred to PT but they won't take her insurance. Discussed leg stretches; exercise ball, maternity belt. Desires IOL @ 39 wks Flowsheet Date 04/26/2021 Daly Score Blood Edema Fundus Height Fundus Units Glucose Ketones Leukocytes Nitrite Labor Signs Protein Cervic Dilation Cervic Effacement Cervic Station none 37 cm trace none neg Type Weight in lbs Pre/Post Dialysis Refused Weight 231.976845757776 BP Diastolic BP Location Tested BP Systolic BP Type 70 120 Fetus Heart Rate Present A 144 Present Fetus Movement A Yes Comments gbs collected today, no comp laints. FWB reassuring per bedside US. F/U routine. Flowsheet Date 05/02/2021 Daly Score Blood Edema Fundus Height Fundus Units Glucose Ketones Leukocytes Nitrite Labor Signs Protein Cervic Dilation Cervic Effacement Cervic Station none 37 Type Weight in lbs Pre/Post Dialysis Refused Weight 231.172562145044 BP Diastolic BP Location Tested BP Systolic BP Type 72 L arm 116 sitting Fetus Heart Rate Present A 143 Fetus Movement A Yes Comments Has not been taking iron pil ls due to constipation. Refuses iron infusion. Discussed risk factors of delivery and hemmorhage including and still refuses. States she will just take the pills if she can take a stool softener. Stressed importance of taking iron pills continuously and recommended taking colace. IOL scheduled for 05/17 at 0000. Flowsheet Date 05/09/2021 Daly Score Blood Edema Fundus Height Fundus Units Glucose Ketones Leukocytes Nitrite Labor Signs Protein Cervic Dilation Cervic Effacement Cervic Station 40 wks none Type Weight in lbs Pre/Post Dialysis Refused Weight 228.733340412377 BP Diastolic BP Location Tested BP Systolic BP Type 70 112 Fetus Heart Rate Present A 146 Present Fetus Movement A Yes Comments IOL scheduled for 05/17. Once again discussed Fe Infusion and possible PRBC transfusion prior to IOL. Patient not agreeable to any type of IV infusion. Discussed risks of significant anemia at time of to include PPH, possible surgery, loss of life. Patient continues to decline iron or possible PRBC transfusion pre-IOL. Does state that she began taking iron again after last appt. Reviewed GBS + status and that patient should report to LD for any labor symptoms or ROM. Discussed need for abx in labor. Counseled on s/s of labor, s/s preeclampsia, and warning signs in . Additionally counseled on FKC/changes in movement, she should report to LD. Flowsheet Date 07/17/2021 Daly Score Blood Edema Fundus Height Fundus Units Glucose Ketones Leukocytes Nitrite Labor Signs Protein Cervic Dilation Cervic Effacement Cervic Station Type Weight in lbs Pre/Post Dialysis Refused Weight 206.2073961729 BP Diastolic BP Location Tested BP Systolic BP Type 72 L arm 116 sitting Fetus Heart Rate Present Fetus Movement Comments Menstrual History Last Menstrual Date Menses Monthly On Bcp Conception Prior Menses Frequency Hcg Plus Date Menarche Onset Age 0307/28/2020 Genetic Screening And Infection History Question Response Note Recent Travel History Outside of Country false Cystic Fibrosis false Any Other Genetic History false Mary Disease false Other Infection History false Thalassemia (Yakut, Tamazight, Mediterranean, Or Background): MCV < 80 false Patient Or Baby's Father Had A Child With Defects Not Listed Above false Live With Someone With TB Or Exposed To TB false Patient's Age Will Be 35 Years Or Older At Estim ated Date of Delivery false Recurrent Loss, Or A Stillbirth false Hemoglobinopathy Or Carrier false Patient Or Partner Has History Of Genital Herpes false Intellectual Disability/Autism false Maternal Metabolic Disorder (eg, Type 1 Diabetes , PKU) false History of Hepatitis false Ellis-Sachs (eg, Confucianism, Cajun, Uzbek-Costa Rican) f alse History Of STD, Gonorrhea, Chlamydia, HPV, Syphi lis false Prior GBS-infected child false History of HIV false Personal or Family History o f Neural Tube Defect (Meningomyelocele, Spina Bifida, Or Anencephaly) false Hemophilia Or Other Blood Disorders false Mental Retardation/Autism false Yadkin's Chorea false If Yes, Was Person Tested For Fragile X? false Other Inherited Genetic Or Chromosomal Disorder false If Yes, Agent(s) And Strength/Dosage false Sickle Cell Disease Or Trait () false Personal or Family History of Congenital Heart D efect false Rash Or Viral Illness Since Last Menstrual Perio d false Muscular Dystrophy false Medications (including Suppl ements, Vitamins, Herbs, OTC Drugs), Illicit/Recreational Drugs, Alcohol false Other Structural Defect false Down Syndrome false Delivery Information Delivery Date Delivery Type Labor Anesthesia Weeks Gestation Incision Type Labor Labor Length Hrs Delivered By Post Complications Tubal Sterilization Discharge Date Comments 2 Induce d Regional-Ep idural 39.1 false Jay Gilbert MD None false 05/20/2021 Discharge Information Feeding Method Contraceptive Method Maternal HG B and HCT Levels Ob Episode Information Episode Created Date Number of Fetuses Patient Bloodtype Patient rh Status Prepregnancy Weight lbs Domestic Partner Domestic Partner Phone Father Name Orthopedic Physician Status 03/29/20 21 1 CLOSED Fetus Data First Name Last Name Admitted to NICU Weight (g) Sex Living Outcome Pediatric Complications Fetus ID Race Codes Race Delivery Type 4195.72 6 M Full Term [id number] Romel Calculation Initial Romel Date Initial Exam Date Initial Exam Provider Initial Ultrasound Date Last Menstrual Period Date Ultra Sound Weeks Gestation 0 Eighteen To Twenty Week Romel Update Ultra Sound Date Fundal Height At Umbil Quickening Date Ultra Sound Latest Weeks Gestation Final Romel Confirmed By Final Romel Confirmed Date Final Romel Date Ultra Sound Latest Days Gestation 0 0 Menstrual History Last Menstrual Date Menses Monthly On Bcp Conception Prior Menses Frequency Hcg Plus Date Menarche Onset Age Delivery Information Delivery Date Delivery Type Labor Anesthesia Weeks Gestation Incision Type Labor Labor Length Hrs Delivered By Post Complications Tubal Sterilization Discharge Date Comments 7 Regional- idural 39 false Unknown delivery informati on/induce d Discharge Information Feeding Method Contraceptive Method Maternal HG B and HCT Levels
--- OUTSIDE RECORDS SUMMARY | 2024-06-10 02:01 | XMS_ITS | Clinical Summary ---
Author Organization [facility] Address [facility] [place], [place] [address] [place] [id number] Care Team Providers Care Nuclear Fuels Research Engineer Name Role Phone None, Provider MD Primary Care Provider Unavaila ble Allergies Active Allergy Reactions Criticality Noted Date Comments Penicillins Hives 04/01/2018 Medications Vit-Fe Fumarate-FA (PNV FOLIC ACID + IRON) 27-1 MG Tab Take 1 tablet by mouth daily. 30 tablet 12 05/20/2021 Active ferrous sulfate, 65 mg elemental, 325 (65 FE) MG tablet Take 1 tablet (325 mg total) by mouth daily with breakfast. 30 tablet 05/20/2021 Active Active Problems Problem Noted Date Diagnosed Date ([facility]) 05/17/2021 Iron deficiency anemia secon viktor to inadequate dietary iron intake 05/17/2021 (spontaneous vaginal delivery) ([facility]) Shoulder dystocia during labor and delivery ([facility]) 04/27/2018 Resolved Problems Problem Noted Date Diagnosed Date Resolved Date Encounter for elective induc tion of labor ([facility]) 04/25/2018 04/27/2018 Amniotic fluid leaking ([facility]) 04/20/2018 04/27/2018 Anemia complicating ([facility]) 04/06/2018 04/27/2018 Family History Medical History Relation Comments Diabetes Maternal Grandmother Diabetes Mother Relation Status Comments Maternal Grandmother Mother Social History Tobacco Use Types Packs/Day Years Used Date Smoking Tobacco: Never Smokeless Tobacco: Never Alcohol Use Standard Drinks/Week Comments No 0 (1 standard drink = 0.6 oz pur e alcohol) AUDIT-C Answer Date Recorded Frequency of Alcohol Consumption Never 04/01/2018 Average Number of Drinks Not on file 018 Frequency of Binge Drinking Not on file 03/12 Depression Answer Date Recor ded Last EPDS Total Score 0 05/19/2021 Last EPDS Self Harm Result Never 05/19 Comments No Sex and Gender Information Value Date Recorded Sex Assigned at Not on file Legal Sex Female 3:58 PM THERAPEUTIC ACTIVITIES SERVICES WORKER Gender Identity Female 05/13/2021 5:21 PM THERAPEUTIC ACTIVITIES SERVICES WORKER Sexual Orientation Not on file Last Filed Vital Signs Vital Sign Reading Time Taken Comments Blood Pressure 103/56 05/20/2021 8:59 AM THERAPEUTIC ACTIVITIES SERVICES WORKER Pulse 59 05/20/2021 8:59 AM THERAPEUTIC ACTIVITIES SERVICES WORKER Temperature 36.3 ??C (97.4 ??F) 05/20/2021 8:59 AM CS T Respiratory Rate 16 05/20/2021 8:59 AM THERAPEUTIC ACTIVITIES SERVICES WORKER Oxygen Saturation 100% 05/20/2021 8:59 AM THERAPEUTIC ACTIVITIES SERVICES WORKER Inhaled Oxygen Concentration - - Weight 104.3 kg (230 lb) 05/17/2021 12:31 AM THERAPEUTIC ACTIVITIES SERVICES WORKER Height 165.1 cm (5' 5 ) 05/17/2021 12:31 AM THERAPEUTIC ACTIVITIES SERVICES WORKER Body Mass Index 38.27 05/17/2021 12:31 AM THERAPEUTIC ACTIVITIES SERVICES WORKER Plan of Treatment Health Maintenance Due Date Last Done Comments Cervical Cancer Screening Pap Smear (Age 21 to 29) Every 3 Years 1997 Cervical Cancer Screening 1997 Annual Physical 2000 Hepatitis C 08/18/2015 DTaP, Tdap and Td Vaccines (6 - Td or Tdap) 07/05/2019 07/05/2009, 10/26/2001, 01/17/1999, Additional history exists COVID-19 Vaccine ( season) 2024 Influenza Adult (#1) 2024 01/20/2012 Hepatitis B Vaccines Completed 02/05/1998, 1997, 1997 Meningococcal Vaccine Aged Out 07/05/2009 No kristine jimena eligible based on patient's age to complete this topic HPV Vaccines Completed 06/24/2010, 11/2009, 07/05/2009 Meningococcal B Vaccine Aged Out No l onger eligible based on patient's age to complete this topic Pneumococcal Vaccine: Pediatrics (0 to 5 Years) and At-Risk Patients (6 to 64 Years) Aged Out No longer eligible based on patient's age to complete this topic RSV Immunizations Under 20 Months Aged Out No longer eligible based on patient's age to complete this topic Insurance [place] Directives * Full Code (Latest Code Status on File) Date Activated Date Inactivated Comments 05/17/2021 1:09 AM 05/19/2021 3:00 AM * Full Code Date Activated Date Inactivated Comments 04/20/2018 9:10 PM 04/21/2018 2:55 AM Care Teams Nuclear Fuels Research Engineer Relationship Specialty Start Date End Date None, Provider, PCP - General EMERGENCY MEDICINE 04/05/18
--- OUTSIDE RECORDS SUMMARY | 2024-06-10 02:01 | XMS_ITS | Referral Summary ---
Author Organization [facility] Address [address] [place] [address] Care Team Providers Care Owner Operator Name Role Phone Unavailable Primary Care Provider Unavailabl e Source Comments [facility],non-owned Affiliates and Associated Physician Practices is amultiple site organization consisting of ambulatory clinics and hospital sitesin [place], [place], [place] and [place]. This disclosure is being madepursuant to the Care Everywhere program and may not contain all information available regarding this patient. 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 Fourth 01/21/2021 Overview (01/21/2021): O-/IMM/-/-/- Antibody-+ Anti-D .7 PLT 233 Social History Tobacco Use Types Packs/Day Years Used Date Smoking Tobacco: Never Assessed Sex and Gender Information Value Date Recorded Sex Assigned at Not on file Gender Identity Not on file Sexual Orientation Not on file Plan of Treatment Not on file
--- OUTSIDE RECORDS SUMMARY | 2024-06-10 02:01 | XMS_ITS | Clinical Summary ---
Author Organization [facility] Address [address] [place] [address] Care Team Providers Care Licensed Embalmer Name Role Phone Unavailable Primary Care Provider Unavailabl e Source Comments [facility],non-owned Affiliates and Associated Physician Practices is amultiple site organization consisting of ambulatory clinics and hospital sitesin [place], [place], [place] and [place]. This disclosure is being madepursuant to the Care Everywhere program and may not contain all information available regarding this patient. Last updated 18.[facility] [employer] Active Problems Problem Noted Date Diagnosed Date [...] Orientation Not on file Plan of Treatment Health Maintenance Due Date Last Done Comments PAP SMEAR 1997 HIV SCREENING 2012 HPV VACCINE (1 - 3-dose series) 2012 HEPATITIS C SCREENING 08/13/2015 DTAP/TDAP/TD VACCINES (1 - Tdap) 2016 HEPATITIS B VACCINE (1 of 3 - 19+ 3-dose series) 2016 COVID-19 VACCINE (2023-2 5 season) 2024 INFLUENZA VACCINE (#1) 2024 DEPRESSION SCREENING 05/11/2024 ZOSTER VACCINE (1 of 2) 08/18/2047 HIB VACCINE Aged Out No longer eligi ble based on patient's age to complete this topic MENINGOCOCCAL (Group B) VACCINE Aged Out No longer eligible based on patient's age to complete this topic MENINGOCOCCAL VACCINE Aged Out No kristine jimena eligible based on patient's age to complete this topic PNEUMOCOCCAL VACCINE Aged Out No long er eligible based on patient's age to complete this topic
--- OUTSIDE RECORDS SUMMARY | 2024-06-10 02:01 | XMS_ITS | Patient Health Summary ---
Author Organization [facility] Address [address] [place] [address] Care Team Providers Care Lighting Technician Name Role Phone Unavailable Primary Care Provider Unavailabl e Note from [facility],non-owned Affiliates and Associated Physician Practices is amultiple site organization consisting of ambulatory clinics and hospital sitesin [place], [place], [place] and [place]. This disclosure is being madepursuant to the Care Everywhere program and may not contain all information available regarding this patient. 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 03/08/2021 Obesity, Class II, BMI 35-39.9, no comorbidity 1 Abnormal ultrasound 01/21/2021 Fourth 01/21/2021 Social History Tobacco Use Types Packs/Day Years Used Date Smoking Tobacco: Never Assessed Sex and Gender Information Value Date Recorded Sex Assigned at Not on file Gender Identity Not on file Sexual Orientation Not on file Procedures * SONOGRAM - COMPLETE(Performed 02/22/2021) Performed for Abnormal ultrasound, Fourth (HCC) * SONOGRAM - COMPLETE(Performed 01/24/2021) Performed for Abnormal ultrasound, Fourth (HCC) Results * SONOGRAM - COMPLETE (02/22/2021 11:21 AM CDT) Only the most recent of2 resultswithin the time period is included. Anatomical Region Laterality Modality Other 02/22/2021 11:2 1 AM CDT Narrative 02/22/2021 3:17 PM CDT ?[facility] ?PHONE: ??FAX: ? Pat. Name: ?NIMO ROGERS Pat. No: ?[id number] Study Date: ?? 02/22/2021 ??11:21am , Age: ? 1995, 25 Pregnancies: ?? 4, Para 2012 Height: ? 66 in Weight: ? 255 lb LMP: ?Unknown GA by Base: ?? 27w0d ?? SU: 05/24/2021 GA by US: ? 27w3d ?? SU: 05/21/2021 GA Selected: ??27w0d ([facility]) SU: ?05/24/2021 Referring MD: Naomi Manuel MD Primary Care Physician: ??Klarissa Garcia RDMS CPT4: ? 44123 BMI: ?41.15 Hist/Ind: ? Growth ?Slightly I ncreased NT ?Normal PENTA screen MEASUREMENTS & AGE ? GROWTH EVALUATION Measurement ??GA ? Range ? Srce %for GA Ratios ----- ---- ------- BPD ??7.2 cm 28w6d (39p8q-59h6r) Hadl BPD 90% FL/BPD 0.69 (0.71 - 0.87* HC ??25.9 cm 28w1d (64o2c-54p0y) Hadl HC ??61% FL/AC ??0.21 (0.20 - 0.24) AC ??24.0 cm 28w2d (09g8r-32r7q) Hadl AC ??80% HC/AC ??1.08 (1.00 - 1.18) FL ?? 4.9 cm 26w4d (09k9f-59r4t) Hadl FL ??24% CI ? 0.81 (0.70 - 0.86) HL ?? 4.8 cm 28w1d (01h0a-61r8y) Venkat HL ??68% GA for sonogram 27w3d (20w0a-04b4g) ?? Weight Estimate: based on (BPD,HC,AC,FL) Hadlock ?Weight: 1123 gm (959-1287gm) Hadl ? : 2lbs, 7oz ? Normal: 1055 gm (791- 1319gm) Hadl ? Wt% ? 69% for 27w0d Heart Rate: 153 bpm Amniotic Fluid Index: 04.9cm (Deepest Pocket) EVAL, PLACENTA Presentation: cephalic Umbilical Cord: 3 Vessels Placenta: posterior Heart Rate: 153 bpm Amniotic Fluid Volume: normal CLINICAL SUMMARY Study Number: 2 ??A single fetus is seen in cephalic presentation. ?? The measurements today are consistent with appropriate interval growth. ??The SU is based on a prior ultrasound examination (confirmed). ??The amniotic fluid volume is within normal limits. ?? anatomy was technically adequate. ?? No major malformations were seen within the limitations of ultrasound. ?? IMPRESSION: Single, live, intrauterine at 27w0d ?? size is has appropriate growth ?? Amniotic fluid volume: within normal limits ?? RECOMMEND: Ultrasound follow up as clinically indicated Thank you for allowing us the opportunity to care for your patient. ?? Corby Urrutia MD <Electronic Signature> ??02/22/2021 03:14pm Corby Urrutia MD [facility] ORDERABLES
[2024-06-10 02:10] VITALS: BP 119/80; PULSE 83; RESP 16; TEMP 36.5; O2SAT 98
--- NOTE | 2024-06-10 05:36 | PC.NURSE ---
PT AMBULATORY TO TRIAGE DESK AND ASKED THIS RN TO REMOVED EMS PLACED LINE AND REPORTED SHE WOULD BE GOING HOME D/T NOT FEELING WELL AND WAIT TIMES. PT EDUCATED ON RISKS OF LEAVING AND EDUCATED PT ON IMPORTANCE OF FOLLOWING UP W HEALTHCARE PROVIDER. PT IV REMOVED AND PT AMBULATORY OUT OF ER WR.
--- OUTSIDE RECORDS SUMMARY | 2024-06-10 05:55 | XMS_ITS | Referral Summary ---
Author Organization [facility] Address [address] [place] [address] Care Team Providers Care Marine Pilot Name Role Phone Unavailable Primary Care Provider Unavailabl e Source Comments [facility],non-owned Affiliates and Associated Physician Practices is amultiple site organization consisting of ambulatory clinics and hospital sitesin [place], [place], [place] and [place]. This disclosure is being madepursuant to the Care Everywhere program and may not contain all information available regarding this patient. Last updated 18.[facility] Active Problems Problem Noted Date Diagnosed Date [...]
--- OUTSIDE RECORDS SUMMARY | 2024-06-10 05:55 | XMS_ITS | Patient Health Summary ---
Author Organization [facility] Address [address] [place] [address] Care Team Providers Care Video Recorder Mechanic Name Role Phone Unavailable Primary Care Provider Unavailabl e Note from [facility],non-owned Affiliates and Associated Physician Practices is amultiple site organization consisting of ambulatory clinics and hospital sitesin [place], [place], [place] and [place]. This disclosure is being madepursuant to the Care Everywhere program and may not contain all information available regarding this patient. Last updated 18.[facility] Active Problems Problem Noted Date Diagnosed [...] ? Pat. Name: ?NIMO ROGERS Pat. No: ?[id number] Study Date: ?? 02/22/2021 ??11:21am , Age: ? 1995, 25 Pregnancies: ?? 4, Para 2012 Height: ? 66 in Weight: ? 255 lb LMP: ?Unknown GA by Base: ?? 27w0d ?? SU: 05/24/2021 GA by US: ? 27w3d ?? SU: 05/21/2021 GA Selected: ??27w0d (From [facility]) SU: ?05/24/2021 Referring MD: Naomi Manuel MD Millinery Salesperson: ??Klarissa Garcia RDMS CPT4: ? 04137 BMI: ?41.15 Hist/Ind: ? Growth ?Slightly I ncreased NT ?Normal PENTA screen MEASUREMENTS & AGE ? GROWTH EVALUATION Measurement ??GA ? Range ? Srce %for GA Ratios ----- ---- ------- BPD ??7.2 cm 28w6d (25n5x-59l8f) Hadl BPD 90% FL/BPD 0.69 (0.71 - 0.87* HC ??25.9 cm 28w1d (93d4d-47e3g) Hadl HC ??61% FL/AC ??0.21 (0.20 - 0.24) AC ??24.0 cm 28w2d (57w0m-29t8x) Hadl AC ??80% HC/AC ??1.08 (1.00 - 1.18) FL ?? 4.9 cm 26w4d (52o1o-61s7x) Hadl FL ??24% CI ? 0.81 (0.70 - 0.86) HL ?? 4.8 cm 28w1d (31s5d-73w3r) Venkat HL ??68% GA for sonogram 27w3d (01k0b-58y6k) ?? Weight Estimate: based on (BPD,HC,AC,FL) Hadlock [...] <Electronic Signature> ??02/22/2021 03:14pm Corby Urrutia MD [facility] ORDERABLES
--- OUTSIDE RECORDS SUMMARY | 2024-06-10 05:55 | XMS_ITS | Clinical Summary ---
Author Organization [facility] Address [address] [place] [address] Care Team Providers Care Taker Off Name Role Phone Unavailable Primary Care Provider Unavailabl e Source Comments [facility],non-owned Affiliates and Associated Physician Practices is amultiple site organization consisting of ambulatory clinics and hospital sitesin [place], [place] and [place]. This disclosure is being madepursuant to the Care Everywhere program and may not contain all information available regarding this patient. Last updated 18.[facility] [employer] Active Problems Problem Noted Date Diagnosed Date [...]
--- OUTSIDE RECORDS SUMMARY | 2024-06-10 05:55 | XMS_ITS | Clinical Summary ---
Author Organization [facility] Address [facility] [facility] [place], [place] [address] [place] [id number] Care Team Providers Care Appeals Assistant Name Role Phone None, Provider MD Primary [...] Active Problems Problem Noted Date Diagnosed Date ([facility]) 05/17/2021 Iron deficiency anemia secon viktor to inadequate dietary iron intake 05/17/2021 (spontaneous vaginal delivery) ([facility]) Shoulder dystocia during labor and delivery ([facility]) 04/27/2018 Resolved Problems Problem Noted Date Diagnosed Date Resolved Date Encounter for elective induc tion of labor ([facility]) 04/25/2018 04/27/2018 Amniotic fluid leaking ([facility]) 04/20/2018 04/27/2018 Anemia complicating ([facility]) 04/06/2018 04/27/2018 Family History Medical History Relation [...] on file Legal Sex Female 3:58 PM SHAKE CUTTER Gender Identity Female 05/13/2021 5:21 PM SHAKE CUTTER Sexual Orientation Not on file Last Filed Vital Signs Vital Sign Reading Time Taken Comments Blood Pressure 103/56 05/20/2021 8:59 AM SHAKE CUTTER Pulse 59 05/20/2021 8:59 AM SHAKE CUTTER Temperature 36.3 ??C (97.4 ??F) 05/20/2021 8:59 AM CS T Respiratory Rate 16 05/20/2021 8:59 AM SHAKE CUTTER Oxygen Saturation 100% 05/20/2021 8:59 AM SHAKE CUTTER Inhaled Oxygen Concentration - - Weight 104.3 kg (230 lb) 05/17/2021 12:31 AM SHAKE CUTTER Height 165.1 cm (5' 5 ) 05/17/2021 12:31 AM SHAKE CUTTER Body Mass Index 38.27 05/17/2021 12:31 AM SHAKE CUTTER Plan of Treatment Health Maintenance Due Date [...] patient's age to complete this topic Insurance [place] Advance Directives * Full Code (Latest Code Status on File) Date Activated Date Inactivated Comments 05/17/2021 1:09 AM 05/19/2021 3:00 AM * Full Code Date Activated Date Inactivated Comments 04/20/2018 9:10 PM 04/21/2018 2:55 AM Care Teams Appeals Assistant Relationship Specialty Start Date End Date None, Provider, PCP - General EMERGENCY MEDICINE 04/05/18
== END 2024-06-10 07:28 | disposition left against medical advice (07) ==
DX: R10.12 Left upper quadrant pain (principal)
CPT/HCPCS: 99199

== ENCOUNTER 2025-01-26 18:45 | Emergency (ER) | payer OTHER, SELFPAY ==
--- OUTSIDE RECORDS SUMMARY | 2025-01-26 18:47 | XMS_ITS | Clinical Summary ---
Author Organization [facility] Address [address] [place] [address] Care Team Providers Care Barrel Turner Name Role Phone Enzo Pedraza Primary Care Provider + Allergies Active Allergy Reactions Criticality Noted Date Comments Penicillins Hives 04/01/2018 Medications Vit-Fe Fumarate-FA (PNV FOLIC ACID + IRON) 27-1 MG Tab Take 1 tablet by mouth daily. 30 tablet 12 05/20/2021 Active ferrous sulfate, 65 mg elemental, 325 (65 FE) MG tablet Take 1 tablet (325 mg total) by mouth daily with breakfast. 30 tablet 05/20/2021 Active methocarbamol (ROBAXIN-750) 750 MG Tab Take 1 tablet (750 mg total) by mouth every 8 (eight) hours as needed. 30 tablet 06/10/2024 Active lidocaine (LIDO HARPREET) 4 % patch Place 1 patch onto the skin daily. Remove & Discard patch within 12 hours or as directed 30 patch 06/10/2024 Active Active Problems Problem Noted Date Diagnosed Date ([facility]) 05/17/2021 Iron deficiency anemia secon viktor to inadequate dietary iron intake 05/17/2021 (spontaneous vaginal delivery) ([facility]) Shoulder dystocia during labor and delivery ([facility]) 04/27/2018 Resolved Problems Problem Noted Date Diagnosed Date Resolved Date Encounter for elective induc tion of labor ([facility]) 04/25/2018 04/27/2018 Amniotic fluid leaking ([facility]) 04/20/2018 04/27/2018 Anemia complicating ([facility]) 04/06/2018 04/27/2018 Family History Medical History Relation [...] Information Value Date Recorded Sex Assigned at Female 06/10/2024 12:32 PM LICENSED CERTIFIED ORTHOTIST Legal Sex Female 3:58 PM LICENSED CERTIFIED ORTHOTIST Gender Identity Female 05/13/2021 5:21 PM LICENSED CERTIFIED ORTHOTIST Sexual Orientation Not on file Last Filed Vital Signs Vital Sign Reading Time Taken Comments Blood Pressure 102/64 06/10/2024 5:51 PM LICENSED CERTIFIED ORTHOTIST Pulse 63 06/10/2024 5:51 PM LICENSED CERTIFIED ORTHOTIST Temperature 36.6 C (97.9 F) 06/10/2024 12:24 PM LICENSED CERTIFIED ORTHOTIST Respiratory Rate 18 06/10/2024 5:51 PM LICENSED CERTIFIED ORTHOTIST Oxygen Saturation 99% 06/10/2024 5:51 PM LICENSED CERTIFIED ORTHOTIST Inhaled Oxygen Concentration - - Weight 99.8 kg (220 lb) 06/10/2024 12:24 PM LICENSED CERTIFIED ORTHOTIST Height 165.1 cm (5' 5) 06/10/2024 12:24 PM LICENSED CERTIFIED ORTHOTIST Body Mass Index 36.61 06/10/2024 12:24 PM LICENSED CERTIFIED ORTHOTIST Plan of Treatment Health Maintenance Due Date Last Done Comments Cervical Cancer Screening Pap Smear (Age 21 to 29) Every 3 Years 1997 Cervical Cancer Screening 1997 Annual Physical 2000 Hepatitis C 08/18/2015 DTaP, Tdap and Td Vaccines (6 - Td or Tdap) 07/05/2019 07/05/2009, 10/26/2001, 01/17/1999, Additional history exists COVID-19 Vaccine ( season) 2025 Hepatitis B Vaccines Completed 02/05/1998, 1997, 1997 Meningococcal Vaccine Aged Out 07/05/2009 No kristine jimena eligible based on patient's age to complete this topic HPV Vaccines Completed 06/24/2010, 11/2009, 07/05/2009 Meningococcal B Vaccine Aged Out No l onger eligible based on patient's age to complete this topic Pneumococcal Vaccine: Pediatrics (0 to 5 Years) and At-Risk Patients (6 to 49 Years) Aged Out No longer eligible based on patient's age to complete this topic RSV Immunizations Under 20 Months Aged Out No longer eligible based on patient's age to complete this topic Insurance [place] Advance Directives * Full Code (Latest Code Status on File) Date Activated Date Inactivated Comments 05/17/2021 1:09 AM 05/19/2021 3:00 AM * Full Code Date Activated Date Inactivated Comments 04/20/2018 9:10 PM 04/21/2018 2:55 AM Care Teams Barrel Turner Relationship Specialty Start Date End Date Enzo Pedraza PA [facility] [place] [id number] PCP - General PHYSICIAN SR. PAYROLL PROCESSOR 06/10/24
--- NOTE | 2025-01-26 19:16 | PC.NURSE ---
NA despite multiple calls 1899,[id number] and 1915 fir triage and radiology
--- OUTSIDE RECORDS SUMMARY | 2025-01-26 19:36 | XMS_ITS | Clinical Summary ---
Author Organization [facility] Address [address] [place] [address] Care Team Providers Care Curtain Hemmer Automatic Name Role Phone Unavailable Primary Care Provider Unavailabl e Source Comments [facility],non-owned Affiliates and Associated Physician Practices is amultiple site organization consisting of ambulatory clinics and hospital sitesin [place], [place], [place] and [place]. This disclosure is being madepursuant to the Care Everywhere program and may not contain all information available regarding this patient. 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 Fourth 01/21/2021 Overview (01/21/2021): O-/IMM/-/-/- Antibody-+ Anti-D .7 PLT 233 Social History Tobacco Use Types Packs/Day Years Used Date Smoking Tobacco: Never Assessed Comments No Sex and Gender Information Value Date Recorded Sex Assigned at Not on file Legal Sex Female 6:29 PM TOOL REPAIRER BENCH Gender Identity Not on file Sexual Orientation Not on file Plan of Treatment Health Maintenance Due Date Last Done Comments HEPATITIS C SCREENING 08/13/2015 DTAP/TDAP/TD VACCINES (1 - Tdap) 2016 HEPATITIS B VACCINE (1 of 3 - 19+ 3-dose series) 2016 DEPRESSION SCREENING 05/11/2024 HPV VACCINE (1 - 3-dose SCDM series) 2024 COVID-19 VACCINE ( - 2023-2 5 season) 2025 INFLUENZA VACCINE (#1) 2025 ZOSTER VACCINE (1 of 2) 08/18/2047 HIV SCREENING Completed 04/26/2018, 10/23/2017 HIB VACCINE Aged Out No longer eligi ble based on patient's age to complete this topic MENINGOCOCCAL (Group B) VACCINE SHARED DECISION-MAKING Aged Out No longer eligible based on patient's age to complete this topic MENINGOCOCCAL GROUPS A/C/Y/W VACCINE Aged Out No longer eligible b ased on patient's age to complete this topic PNEUMOCOCCAL VACCINE Aged Out No long er eligible based on patient's age to complete this topic Insurance
--- OUTSIDE RECORDS SUMMARY | 2025-01-26 19:36 | XMS_ITS | Clinical Summary ---
Author Organization [facility] Address [address] [place] [id number] Care Team Providers Care Metal Products Fabricator Assembler Name Role Phone Enzo Pedraza Primary Care [...] Active Problems Problem Noted Date Diagnosed Date ([facility]) 05/17/2021 Iron deficiency anemia secon viktor to inadequate dietary iron intake 05/17/2021 (spontaneous vaginal delivery) ([facility]) Shoulder dystocia during labor and delivery ([facility]) 04/27/2018 Resolved Problems Problem Noted Date Diagnosed Date Resolved Date Encounter for elective induc tion of labor ([facility]) 04/25/2018 04/27/2018 Amniotic fluid leaking ([facility]) 04/20/2018 04/27/2018 Anemia complicating ([facility]) 04/06/2018 04/27/2018 Family History Medical History [...] Sex Assigned at Female 06/10/2024 12:32 PM MANUFACTURING MANAGER Legal Sex Female 3:58 PM MANUFACTURING MANAGER Gender Identity Female 05/13/2021 5:21 PM MANUFACTURING MANAGER Sexual Orientation Not on file Last Filed Vital Signs Vital Sign Reading Time Taken Comments Blood Pressure 102/64 06/10/2024 5:51 PM MANUFACTURING MANAGER Pulse 63 06/10/2024 5:51 PM MANUFACTURING MANAGER Temperature 36.6 C (97.9 F) 06/10/2024 12:24 PM MANUFACTURING MANAGER Respiratory Rate 18 06/10/2024 5:51 PM MANUFACTURING MANAGER Oxygen Saturation 99% 06/10/2024 5:51 PM MANUFACTURING MANAGER Inhaled Oxygen Concentration - - Weight 99.8 kg (220 lb) 06/10/2024 12:24 PM MANUFACTURING MANAGER Height 165.1 cm (5' 5) 06/10/2024 12:24 PM MANUFACTURING MANAGER Body Mass Index 36.61 06/10/2024 12:24 PM MANUFACTURING MANAGER Plan of Treatment Health Maintenance Due Date [...] patient's age to complete this topic Insurance [place] Advance Directives * Full Code (Latest Code Status on File) Date Activated Date Inactivated Comments 05/17/2021 1:09 AM 05/19/2021 3:00 AM * Full Code Date Activated Date Inactivated Comments 04/20/2018 9:10 PM 04/21/2018 2:55 AM Care Teams Metal Products Fabricator Assembler Relationship Specialty Start Date End Date Enzo Pedraza PA [facility] [place] [id number] PCP - General PHYSICIAN HEALTH CARE SOCIAL WORKER 06/10/24
== END 2025-01-26 19:00 | disposition left against medical advice (07) ==
DX: R05.9 Cough, unspecified (principal)
CPT/HCPCS: 99199

== ENCOUNTER 2025-01-26 19:07 | Emergency (ER) | payer OTHER, SELFPAY ==
[2025-01-26 19:13] VITALS: BP 128/73; PULSE 99; RESP 16; TEMP 37.3; O2SAT 98
[2025-01-26 19:36] LABS: EDUAAPPEAR Cloudy; EDUABILI Negative (Negative); EDUABLOOD Negative (Negative); EDUACOLOR1 Yellow; EDUAGLUCOSE Negative (Negative); EDUAKETONE Negative (Negative); EDUALEUKO Negative (Negative); EDUANITRATE Negative (Negative); EDUAPH 5.5; EDUAPROTEIN Negative (Negative); EDUASPGRAVITY 1.025; EDUAUROBILI 1.0
[2025-01-26 19:52] LABS: EDCOVIDSCREEN Negative (Negative); EDINFLUASCREEN Negative (Negative); EDINFLUBSCREEN Negative (Negative)
--- NOTE | 2025-01-26 19:56 | ED_ITS ---
HPI - Female Genitourinary General Chief complaint: Urogenital-Female Stated complaint: Sinus/UTI Time Seen by Provider: 01/26/25 19:10 Source: patient Mode of arrival: ambulatory Limitations: no limitations History of Present Illness HPI Narrative: Patient is a 29-year-old female that presents with 2 days of nasal congestion drainage, dry cough. Patient has history of asthma and has used albuterol but is almost out. Patient also has 1 day of urinary frequency, nausea and low back pain. Patient denies any fever, chills, nausea, vomiting, diarrhea. Patient is also 5 weeks and states she is not keeping the baby MD elicited complaint: dysuria Related Data Home Medications ?Medication ?Instructions ?Recorded ?Confirmed ?Last Taken ?Type norgestimate 0.25 mg-ethinyl 1 tablet PO DAILY 5 06/09/24 Unknown History estradiol 0.035 mg tablet (Estarylla) Allergies Allergy/AdvReac Type Severity Reaction Status Date / Time Penicillins Allergy Unknown Hives Verified 01/26/25 19:23 Review of Systems Review of Systems: All systems reviewed & are unremarkable except as noted in HPI and below Constitutional: Constitutional: Denies chills, Denies fever(s), Denies headache(s), Denies malaise and Denies weakness Eyes: Eyes: Denies change in vision, Denies eye discharge and Denies irritation ENT: Denies otalgia, Denies headache(s), Reports nasal congestion, Denies nasal discharge, Denies sinus pain and Denies sore throat Cardiovascular: Cardiovascular: Denies chest pain, Denies edema, Denies palpitations and Denies dyspnea Respiratory: Respiratory: Reports cough and Denies dyspnea Gastrointestinal: Gastrointestinal: Denies abdominal pain, Denies diarrhea, Denies nausea and Denies vomiting Genitourinary: Genitourinary: Denies hematuria, Reports nocturia and Reports flank pain Musculoskeletal: Musculoskeletal: Denies back pain and Denies numbness Integumentary/Breasts: Skin/Breast: Denies pruritus and Denies rash Neurologic: Denies headache(s), Denies numbness and Denies weakness Psychiatric: Psychiatric: Reports no additional psychiatric complaints Endocrine: Endocrine: Denies palpitations PMFSH Past Medical History Medical History Asthma Surgical History Surgical History No pertinent past surgical history Social History Social History Smoking status: Never smoker Gender identity (if verbalized by the patient): Female Comments At time of signature, agree with nursing past medical, surgical, social and family history. There is no relevant family history pertinent to the presenting complaint. Exam Const: General: cooperative, healthy appearing, comfortable, no acute distress and well nourished Nutritional Appearance: well nourished Orientation/consciousness: patient oriented x3 HENMT: Head: normocephalic and atraumatic Ears: external ears normal Face/Nose/Sinus: Normal external nose present, Normal nares present and normal facial exam Face and sinus: normal facial exam Eyes: General: appearance normal, both eyes and all related structures Pupils: Equal, round and reactive pupils present EOM: EOMs intact bilaterally Neck: Neck: normal visual inspection, full ROM and supple Chest: Chest palpation & inspection: normal inspection of the chest Resp: Effort & Inspection: normal respiratory effort and able to speak in complete sentences Cardio: Rate: regular rate Rhythm: regular rhythm GI: Inspection: normal to inspection GI Palp: No abdominal tenderness and Yes Soft to palpation : General: Yes no CVA tenderness Back/Spine/Pelvis: Back: no CVA tenderness Skin: General skin exam: normal color and no rashes or lesions noted Neuro: General: patient oriented x3 and moves all extremities Cranial nerves: Yes Equal, round and reactive pupils present Extrem: General: normal to inspection and full ROM Psych: Appearance: grossly normal and well kempt Course Course Emergency Course: Patient is aware of diagnosis, understands and agrees to treatment plan. Anticipatory guidance given. Patient agrees to follow-up as directed and is aware of reasons to seek care at the emergency department. Portions of this record may have been created with voice recognition software Level of Care: Express Care Visit Vital Signs Vital signs: Vital Signs Temperature 37.3 C 01/26/25 19:13 Pulse Rate 99 01/26/25 19:13 Respiratory Rate 16 01/26/25 19:13 Blood Pressure 128/73 01/26/25 19:13 Pulse Oximetry 98 01/26/25 19:13 Oxygen Delivery Room Air 01/26/25 19:13 Temperature 37.3 C 01/26/25 19:13 Pulse Rate 99 01/26/25 19:13 Respiratory Rate 16 01/26/25 19:13 Blood Pressure 128/73 01/26/25 19:13 Pulse Oximetry 98 01/26/25 19:13 Oxygen Delivery Room Air 01/26/25 19:13 Reviewed MDM - Female Genitourinary MDM Narrative Medical decision making narrative: UA shows no signs of UTI. Symptoms most likely caused from . Will send in Tessalon Perles, Flonase and refill her albuterol. Patient reiterated she is not keeping child so I did suggest Sudafed [id number] No CMT, adnexal tenderness, or evidence of pelvic etiology. Pt well hydrated appearing, in no respiratory distress, hemodynamically stable. Recommend supportive care. The patient is stable at time of discharge the clinical impression was discussed and the patient was given the opportunity to ask questions, which were addressed as completely as possible given the information available at present. Anticipatory guidance and return to care precautions were discussed and the importance of primary care follow-up was stressed and encouraged. The patient voiced understanding of the plan, indications to return, and the need for follow-up. Exam findings show no acute concerns or changes Patient is appropriate for outpatient treatment and follow-up. Differential diagnosis considered: Mahajan virus, strep pharyngitis, allergic rhinitis, upper respiratory tract infection, sinusitis, rhinosinusitis, naso pharyngitis. viral pharyngitis, otitis media, otitis externa, otitis effusion, foreign body, cerumen impaction, viral syndrome, and influenza.? Differential Diagnosis Differential diagnosis: Likely urinary tract infection, bacterial vaginosis, trichomoniasis, cervicitis, vaginitis and cystitis Medical Records Attestation: I reviewed the patient's medical records. Lab Data Attestation: I reviewed the patient's lab results. Labs: Lab Results 01/26/25 Range/Units 19:17 POC Urine Color Yellow POC Urine Clarity Cloudy POC Urine pH 5.5 POC Ur Specif [place] 1.025 POC Urine Protein Negative (Negative) POC Ur Glucose (UA) Negative (Negative) POC Urine Ketones Negative (Negative) POC Urine Blood Negative (Negative) POC Urine Nitrite Negative (Negative) POC Urine Bilirubin Negative (Negative) POC Urine Urobilinogen 1.0 POC U Leukocyte Esteras Negative (Negative) POC Influenza A Ag Negative (Negative) POC Influenza B Ag Negative (Negative) POC SARS CoV-2 Ag Negative (Negative) Discharge Plan Discharge Clinical Impression: Acute upper respiratory infection, Urinary frequency Qualifiers: Weeks of gestation: less than 8 weeks Qualified Code(s): Z3A.01 - Less than 8 weeks gestation of Patient Disposition: Home Condition: Stable Instructions: Upper Respiratory Infection (ED), Urinary Urgency and Frequency (DC) Additional Instructions: We will send a urine culture to the lab, and if bacteria grows we will send an antibiotic Continue with increased water intake. Take Tylenol or ibuprofen as needed for pain or fever. Follow-up with primary care provider for urine recheck or see ER visit if condition worsens with high fever, nausea, vomiting, severe back pain Your Covid and flu are both negative Your symptoms are likely due to a viral illness, which is not treated with antibiotics. Viral symptoms can be present for up to a few weeks. -For pain/fever, you may take: Tylenol 650-1000mg by mouth every 4-6 hours. Do not exceed 4000mg in 24 hours. Advil (Ibuprofen) 600 mg by mouth every 6 hours. Do not exceed 2400mg in 24 hours. 8 AM: Tylenol 11 AM: Ibuprofen 2 PM: Tylenol 5 PM: Ibuprofen 8 PM: Tylenol 11 PM: Ibuprofen 2 AM: Tylenol 5 AM: Ibuprofen -Antihistamine medication such as Benadryl/Zyrtec at night and Claritin/Mehreen during the day can help improve symptoms. -Use Flonase twice a day for 5 days then daily to help reduce the inflammation and dry up your sinuses. -You can also use Sudafed behind the pharmacy counter(12 or 24 hour). Be sure to drink plenty of water with these medications at least 8 ounces with every dose and it is important to drink 8 to 10 glasses of water per day. Water is a natural decongestant -Eat and drink things that are easy to swallow, like tea or soup, or popsicles. -Oral rinses such as: Salt water gargles and/or may use topical anesthetic (eg. Chloraseptic spray) or lozenges to relieve dryness or throat pain). -Frequent hand washing or hand informatics analyst is one of the best ways to prevent spread of infection. -Using a vaporizer or humidifier at night will also help thin secretions and help with coughing up phlegm. Call your Primary Care Doctor and make a follow-up appointment in 3 days. If your cough worsens, you develop a fever greater than 103, you develop shaking chills, a fast heartbeat, trouble breathing and/or feel you are are breathing much faster than usual, call your Primary Care Doctor or go to the ER. Patient Language: Mauritian Prescriptions: New benzonatate 100 mg capsule 100 mg PO BID PRN (Reason: cough) Qty: 14 0RF albuterol sulfate 90 mcg/actuation HFA aerosol inhaler 2 puff inhalation QID PRN (Reason: shortness of breath or wheezing) Qty: 6.7 0RF fluticasone propionate [Flonase Allergy Relief] 50 mcg/actuation spray,suspension 1 spray intranasal DAILY Qty: 16 0RF Rx Instructions: administer into each nostril No Action norgestimate-ethinyl estradiol [Estarylla] 0.25-35 mg-mcg tablet 1 tablet PO DAILY Follow-up/Referrals: Wilfredo Sutton MD [Physician, Family Practice] - 3 Days Referral Note: Establish care Time of Disposition: 20:04
== END 2025-01-26 20:13 | disposition home or self-care (01) ==
PROVIDERS: Emergency Provider Nurse Practitioner Family
DX: O99.511 Diseases of the respiratory system complicating pregnancy, first trimester (principal); J06.9 Acute upper respiratory infection, unspecified; O99.891 Other specified diseases and conditions complicating pregnancy; R35.0 Frequency of micturition; Z3A.01 Less than 8 weeks gestation of pregnancy; Z20.822 Contact with and (suspected) exposure to COVID-19; J45.909 Unspecified asthma, uncomplicated
CPT/HCPCS: 81003; 87086; 87426; 87804; 99213; G0463